=== PATIENT | male | born 1955 | race Caucasian/White ===

== ENCOUNTER → 2019-11-04 14:44 | Outpatient (BNVA) | payer MEDICARE, MEDICAID, SELFPAY | PROVIDERS: Visit Provider Nurse Practitioner Family | DX: J44.1 Chronic obstructive pulmonary disease with (acute) exacerbation (principal); F17.200 Nicotine dependence, unspecified, uncomplicated; R09.89 Other specified symptoms and signs involving the circulatory and respiratory systems | CPT/HCPCS: 71046; 87804 ==

== ENCOUNTER → 2019-12-02 13:45 | Outpatient (BNVA) | payer MEDICARE, MEDICAID, SELFPAY | PROVIDERS: Visit Provider Internal Medicine Critical Care Medicine | DX: J44.9 Chronic obstructive pulmonary disease, unspecified (principal); F17.200 Nicotine dependence, unspecified, uncomplicated | CPT/HCPCS: 80053 ==

== ENCOUNTER → 2020-08-09 11:46 | Outpatient (BNVA) | payer MEDICARE, MEDICAID, SELFPAY | PROVIDERS: Visit Provider Nurse Practitioner Family | DX: J44.1 Chronic obstructive pulmonary disease with (acute) exacerbation (principal); F17.200 Nicotine dependence, unspecified, uncomplicated; R06.02 Shortness of breath; J44.9 Chronic obstructive pulmonary disease, unspecified | CPT/HCPCS: 71046; 80053; 85025 ==

== ENCOUNTER 2020-08-30 19:27 | Emergency (ER) | payer MEDICARE, MEDICAID, SELFPAY ==
[2020-08-30] VITALS (9 sets, daily range): BP systolic 131–175; BP diastolic 72–111; PULSE 74–82; RESP 15–24; TEMP 36.6; O2SAT 93–98; BMI 24.9
--- NOTE | 2020-08-30 19:37 | XR_ITS ---
WS: [id number] XR chest 1V portable [id number] REASON FOR EXAM: sob FINDINGS: The chest is unchanged compared to 08/09/2020. Normal heart and mediastinum. No active pulmonary parenchymal or pleural disease. Bony thorax intact. XR/XR chest 1V portable [id number] IMPRESSION: No acute chest abnormality.
--- NOTE | 2020-08-30 19:49 | ED_ITS ---
HPI - COVID General: Chief Complaint: COVID symptoms Stated Complaint: SOB/FEVER Time Seen by Provider: 08/30/20 19:33 Source: patient Mode of arrival: ambulatory Limitations: no limitations Triage information: Has fever, cough or shortness of breath . No known COVID + exposure last 14 days History of Present Illness: HPI Narrative: 64-year-old male has a long history of COPD states he is having shortness of breath and cough over the last 4 to 5 days. He has had body aches as well with no fever. EMS brought him in on oxygen but has turned his oxygen off. Has been satting 94% here on room air patient states he is also had a dull ache in the center of his chest. Denies any worsening improving factors. COVID 19 common symptoms: positive non-productive cough and dyspnea; negative fever(s), chills, body aches, headache(s), throat pain, nausea, vomiting or diarrhea COVID 19 other sytmptoms: negative chest pain COVID Results: SARS-CoV-2 Antigen (Rapid) Pending 08/30/20 19:43 08/30/20 Review of Systems Const: Denies: fever(s), chills, body aches or change in appetite Eyes: Denies: blurry vision or eye discomfort ENMT: Denies: throat pain or dental pain Card: Denies: chest pain Resp: Reports: dyspnea, non-productive cough and wheezing GI: Denies: abdominal pain, nausea, vomiting or diarrhea : Denies: dysuria Musc: Denies: neck pain or back pain Skin/Breast: Denies: rash Neuro: Denies: headache(s) Psych: Denies: depression Yon/Lymph: Denies: easy bruising All/Imm: Denies: urticaria PFSH ED PFSH: Medical History Anxiety Chronic back pain greater than 3 months duration COPD (chronic obstructive pulmonary disease) Depression History of CVA (cerebrovascular accident) without residual deficits Smoker Family History Other Cancer Social History Smoking and tobacco status: current every day smoker cigarettes Packs smoked per day: 0.5 Years cigarettes smoked: 45 Second hand smoke exposure: No Smoking risk assessment/counseling performed?: Yes Alcohol intake: never Desire information about alcohol rehabilitation?: No Counseling given: No Desire information about substance/drug rehabilitation?: No Counseling given: No Adopted: No Caregiver/support person: No Lives independently: Yes Household members: none Housing: Apartment Marital status: Single Number of children: 4 service: Yes branch: [employer] Current occupational status: disabled History of recent travel: No Current gender identity: Male Physical Exam Const: COMMON NORMALS: no acute distress, patient oriented x3 and healthy appearing HENMT: COMMON NORMALS: normocephalic and atraumatic HEAD & SCALP: normocephalic and atraumatic Eye: COMMON NORMALS: Equal, round and reactive pupils present and EOMs intact bilaterally PUPIL: Yes Equal, round and reactive pupils present Neck/C-Spine: COMMON NORMALS: full ROM and supple Chest: COMMONS NORMALS: normal inspection of the chest and normal palpation of entire chest wall Resp: COMMON NORMALS: normal respiratory effort, No retractions and No use of accessory muscles AUSCULTATION: wheezes Cardio: COMMON NORMALS: regular rate, regular rhythm and No murmurs present (Cardio) RATE: regular rate RHYTHM: regular rhythm GI: COMMON NORMALS: Normal to inspection, nondistended, normoactive bowel sounds present, Soft to palpation, non-tender and no masses PALPATION: Yes Soft to palpation Extremity: COMMON NORMALS: normal to inspection and full ROM Neuro: COMMON NORMALS: patient oriented x3, moves all extremities and no focal motor deficits Psych: COMMON NORMALS: mental status grossly normal, Normal thought process present and cooperative THOUGHT PROCESS: Normal thought process present Skin: COMMON NORMALS: no rashes or lesions noted and no wounds GENERAL SKIN EXAM: no rashes or lesions noted Course Vital Signs: Vital signs: Vital Signs Temperature 97.9 F 08/30/20 19:29 Pulse Rate 78 08/30/20 19:29 Respiratory Rate 24 H 08/30/20 19:29 Blood Pressure 175/111 08/30/20 19:29 Pulse Oximetry 94 08/30/20 20:02 MDM - COVID Lab Data: Labs: Lab Results 08/30/20 08/30/20 08/30/20 Range/Units 19:43 19:43 19:43 WBC 3.9 L (4.0-10.0) 10^3/ uL RBC 5.28 (4.1-5.3) 10^6/u L Hgb 15.8 (11.7-16.6) g/dL Hct 49.5 (42.0-52.0) % MCV 93.8 (80-94) fL MCH 29.9 (28.0-34.0) pg MCHC 31.9 (30.0-36.0) g/dL RDW 13.1 (12.1-15.1) % Plt Count 155 (130-400) 10^3/c mm MPV 12.6 H (7.4-10.4) fL Neut % (Auto) 41.0 % Lymph % (Auto) 44.1 % [place] % (Auto) 13.0 % Eos % (Auto) 1.3 % Baso % (Auto) 0.3 % Neut # (Auto) 1.61 L (1.8-7.7) 10^3/u L Lymph # (Auto) 1.7 (0.8-4.8) 10^3/u L [place] # (Auto) 0.5 (0.2-0.9) 10^3/u L Eos # (Auto) 0.1 (0.0-0.8) 10^3/u L Baso # (Auto) 0.0 (0.0-0.1) 10^3/u L Nucleated RBC % (a uto) 0 % Nucleated RBCs # 0.0 /100WBC D-Dimer 0.33 (0-0.59) ug/mIFE U Specimen Type Sample Site ABG pH (7.35-7.45) ABG pCO2 (35-45) mmHg ABG pO2 (80.0-100.0) mmH g ABG HCO3 (22-26) mmol/L ABG Base Excess (-2.0-2.0) mmol/ L Marcin Test Hematocrit (42-52) % O2 Delivery Device Bulk Gas Specialist ID Sodium 138 (136-145) mmol/L Potassium 4.3 (3.5-5.1) mmol/L Chloride 103 (98-107) mmol/L Carbon Dioxide 28 (22-29) mmol/L Anion Gap 11.3 (5-19) BUN 23 (8-23) mg/dL Creatinine 0.9 (0.7-1.2) mg/dL Glucose 111 (65-115) mg/dL Calculated Osmolal ity 290 (285-295) mOsm/k g Lactic Acid (0.5-2.2) mmol/L Calcium 8.8 (8.5-10.5) mg/dL Total Bilirubin 0.2 (0.15-1.2) mg/dL AST 15 (0-40) U/L ALT 23 (0-41) U/L Alkaline Phosphata se 91 (40-130) IU/L NT-Pro-B Natriuret Pep 18 (0-125) pg/mL Total Protein 6.6 (6.6-8.7) g/dL Albumin 3.7 (3.5-5.2) g/dL Globulin 2.9 (1.3-4.6) g/dL 08/30/20 08/30/20 Range/Units 19:43 20:05 WBC (4.0-10.0) 10^3/ uL RBC (4.1-5.3) 10^6/u L Hgb (11.7-16.6) g/dL Hct (42.0-52.0) % MCV (80-94) fL MCH (28.0-34.0) pg MCHC (30.0-36.0) g/dL RDW (12.1-15.1) % Plt Count (130-400) 10^3/c mm MPV (7.4-10.4) fL Neut % (Auto) % Lymph % (Auto) % [place] % (Auto) % Eos % (Auto) % Baso % (Auto) % Neut # (Auto) (1.8-7.7) 10^3/u L Lymph # (Auto) (0.8-4.8) 10^3/u L [place] # (Auto) (0.2-0.9) 10^3/u L Eos # (Auto) (0.0-0.8) 10^3/u L Baso # (Auto) (0.0-0.1) 10^3/u L Nucleated RBC % (a uto) % Nucleated RBCs # /100WBC D-Dimer (0-0.59) ug/mIFE U Specimen Type Arterial Sample Site Radial, right ABG pH 7.39 (7.35-7.45) ABG pCO2 42.3 (35-45) mmHg ABG pO2 75.2 L (80.0-100.0) mmH g ABG HCO3 25.7 (22-26) mmol/L ABG Base Excess 0.5 (-2.0-2.0) mmol/ L Marcin Test Pos Hematocrit 51.1 (42-52) % O2 Delivery Device None Bulk Gas Specialist ID [email or web address] Sodium (136-145) mmol/L Potassium (3.5-5.1) mmol/L Chloride (98-107) mmol/L Carbon Dioxide (22-29) mmol/L Anion Gap (5-19) BUN (8-23) mg/dL Creatinine (0.7-1.2) mg/dL Glucose (65-115) mg/dL Calculated Osmolal ity (285-295) mOsm/k g Lactic Acid 0.7 (0.5-2.2) mmol/L Calcium (8.5-10.5) mg/dL Total Bilirubin (0.15-1.2) mg/dL AST (0-40) U/L ALT (0-41) U/L Alkaline Phosphata se (40-130) IU/L NT-Pro-B Natriuret Pep (0-125) pg/mL Total Protein (6.6-8.7) g/dL Albumin (3.5-5.2) g/dL Globulin (1.3-4.6) g/dL Imaging Data: CXR: Attestation: I personally reviewed and interpreted this imaging study as follows: My impression: no acute abnormality EKG Data: EKG 1: Attestation: I personally reviewed and interpreted this EKG as follows: EKG interpretation date: 08/30/20 EKG interpretation time: 19:34 Interpretation: nsr hr [address] or t wave abnormalities qrs 84 qtc 388 COVID Results: SARS-CoV-2 Antigen (Rapid) Pending 08/30/20 19:43 08/30/20 Discharge Plan Discharge Prescriptions: No Action albuterol sulfate 2.5 mg /3 mL (0.083 %) solution for nebulization 2.5 mg INHALATION Q4H PRN (Reason: shortness of breath or wheezing) 30 Days Qty: 75 RF: 5 revefenacin 175 mcg/3 mL solution for nebulization 175 mcg INHALATION DAILY 90 Days Qty: 90 RF: 3 Seroquel 100 mg tablet 100 mg PO BEDTIME@2200 RF: 0 Pulmicort 0.5 mg/2 mL suspension for nebulization 0.5 mg INHALATION BID@1000,2200 RF: 0 Coding Level of Care Code ED Stained Glass Gl[place]ier for Ralphg Fwd Exam Comprehensive
[2020-08-30 20:01] LABS: Basophils % 0.3 %; Eosinophils # 0.1 10^3/uL (0.0-0.8); Eosinophils % 1.3 %; Hematocrit 49.5 % (42.0-52.0); Hemoglobin 15.8 g/dL (11.7-16.6); Lymphocytes # 1.7 10^3/uL (0.8-4.8); Lymphocytes % 44.1 %; Mean Corpuscular HGB Conc 31.9 g/dL (30.0-36.0); Mean Corpuscular Hemoglobin 29.9 pg (28.0-34.0); Mean Corpuscular Volume 93.8 fL (80-94); Mean Platelet Volume 12.6 fL (7.4-10.4); Monocytes # 0.5 10^3/uL (0.2-0.9); Neutrophils # 1.61 10^3/uL (1.8-7.7); Nucleated Red Blood Cells % 0 %; Platelet Count 155 10^3/cmm (130-400); Red Blood Count 5.28 10^6/uL (4.1-5.3); Red Cell Distribution Width 13.1 % (12.1-15.1); White Blood Count 3.9 10^3/uL (4.0-10.0)
[2020-08-30 20:14] LABS: ABG PCO2 42.3 mmHg (35-45); ABG PH Result 7.39 (7.35-7.45); Arterial Blood Gas Hematocrit 51.1 % (42-52); Base Excess ABG 0.5 mmol/L (-2.0-2.0); Blood Gas Allen Test Pos; Blood Gas Sample Site Radial, right; Blood Gas Sample Type Arterial; HCO3 ABG 25.7 mmol/L (22-26); PO2 ABG 75.2 mmHg (80.0-100.0)
[2020-08-30 20:21] LABS: D Dimer 0.33 ug/mIFEU (0-0.59)
[2020-08-30 20:31] LABS: Lactic Sepsis W/Reflex 0.7 mmol/L (0.5-2.2)
[2020-08-30 20:37] LABS: Alanine Aminotransferase 23 U/L (0-41); Albumin Level 3.7 g/dL (3.5-5.2); Alkaline Phosphatase 91 IU/L (40-130); Anion Gap 11.3 (5-19); Aspartate Amino Transferase 15 U/L (0-40); Blood Urea Nitrogen 23 mg/dL (8-23); C Reactive Protein 7.6 mg/L (0.0-4.9); Calcium 8.8 mg/dL (8.5-10.5); Carbon Dioxide 28 mmol/L (22-29); Chloride 103 mmol/L (98-107); Globulin 2.9 g/dL (1.3-4.6); Glucose 111 mg/dL (65-115); NT Pro B Type Natriuretic Pept 18 pg/mL (0-125); Osmolality Calculated 290 mOsm/kg (285-295); Potassium 4.3 mmol/L (3.5-5.1); Sodium 138 mmol/L (136-145); Total Bilirubin 0.2 mg/dL (0.15-1.2); Total Protein 6.6 g/dL (6.6-8.7)
[2020-08-30 20:49] LABS: SARS Covid-2 Antigen Positive (Negative)
[2020-08-30 21:01] LABS: Troponin(5th) Baseline 8 ng/L (0-15)
--- NOTE | 2020-08-30 21:11 | ED_ITS ---
HPI - COVID General: Chief Complaint: COVID symptoms Stated Complaint: SOB/FEVER Time Seen by Provider: 08/30/20 19:33 Source: patient Mode of arrival: ambulatory Limitations: no limitations Triage information: Has fever, cough or shortness of breath . No known COVID + exposure last 14 days COVID Results: SARS-CoV-2 Antigen (Rapid) Positive (Negative) H 08/30/20 19:43 08/30/20 [facility] ED PFSH: Medical History Anxiety Chronic back pain greater than 3 months duration COPD (chronic obstructive pulmonary disease) Depression History of CVA (cerebrovascular accident) without residual deficits Smoker Family History Other Cancer Social History Smoking and tobacco status: current every day smoker cigarettes Packs smoked per day: 0.5 Years cigarettes smoked: 45 Second hand smoke exposure: No Smoking risk assessment/counseling performed?: Yes Alcohol intake: never Desire information about alcohol rehabilitation?: No Counseling given: No Desire information about substance/drug rehabilitation?: No Counseling given: No Adopted: No Caregiver/support person: No Lives independently: Yes Household members: none Housing: Apartment Marital status: Single Number of children: 4 service: Yes branch: [employer] Current occupational status: disabled History of recent travel: No Current gender identity: Male Course Vital Signs: Vital signs: Vital Signs Temperature 97.9 F 08/30/20 19:29 Pulse Rate 78 08/30/20 19:29 Respiratory Rate 24 H 08/30/20 19:29 Blood Pressure 175/111 08/30/20 19:29 Pulse Oximetry 94 08/30/20 20:02 MDM - COVID MDM Narrative: Medical decision making narrative: Alfredo presents here with Covid 19. He does have a long history of COPD and meets criteria for bam infusion. He is well-appearing here in no distress and pulse ox is currently 95% on room air. X-ray shows no pneumonia and his blood work is normal including a negative D-dimer. Patient is stable for discharge. He came in on 2 L by EMS but he was not requiring that and has not required oxygen at all while in the ER. I did give him strict return instructions including a hypoxia. Patient stable for discharge and is to return if worsening. He understands and agrees the plan. Lab Data: Labs: Lab Results 08/30/20 08/30/20 08/30/20 Range/Units 19:43 19:43 19:43 WBC 3.9 L (4.0-10.0) 10^3/ uL RBC 5.28 (4.1-5.3) 10^6/u L Hgb 15.8 (11.7-16.6) g/dL Hct 49.5 (42.0-52.0) % MCV 93.8 (80-94) fL MCH 29.9 (28.0-34.0) pg MCHC 31.9 (30.0-36.0) g/dL RDW 13.1 (12.1-15.1) % Plt Count 155 (130-400) 10^3/c mm MPV 12.6 H (7.4-10.4) fL Neut % (Auto) 41.0 % Lymph % (Auto) 44.1 % [place] % (Auto) 13.0 % Eos % (Auto) 1.3 % Baso % (Auto) 0.3 % Neut # (Auto) 1.61 L (1.8-7.7) 10^3/u L Lymph # (Auto) 1.7 (0.8-4.8) 10^3/u L [place] # (Auto) 0.5 (0.2-0.9) 10^3/u L Eos # (Auto) 0.1 (0.0-0.8) 10^3/u L Baso # (Auto) 0.0 (0.0-0.1) 10^3/u L Nucleated RBC % (a uto) 0 % Nucleated RBCs # 0.0 /100WBC D-Dimer 0.33 (0-0.59) ug/mIFE U Specimen Type Sample Site ABG pH (7.35-7.45) ABG pCO2 (35-45) mmHg ABG pO2 (80.0-100.0) mmH g ABG HCO3 (22-26) mmol/L ABG Base Excess (-2.0-2.0) mmol/ L Marcin Test Hematocrit (42-52) % O2 Delivery Device Machine Setter Supervisor ID Sodium 138 (136-145) mmol/L Potassium 4.3 (3.5-5.1) mmol/L Chloride 103 (98-107) mmol/L Carbon Dioxide 28 (22-29) mmol/L Anion Gap 11.3 (5-19) BUN 23 (8-23) mg/dL Creatinine 0.9 (0.7-1.2) mg/dL GFR Calculation 85.0 L (90-130) mL/min Glucose 111 (65-115) mg/dL Calculated Osmolal ity 290 (285-295) mOsm/k g Lactic Acid (0.5-2.2) mmol/L Calcium 8.8 (8.5-10.5) mg/dL Total Bilirubin 0.2 (0.15-1.2) mg/dL AST 15 (0-40) U/L ALT 23 (0-41) U/L Alkaline Phosphata se 91 (40-130) IU/L Troponin T Baselin e (0-15) ng/L C-Reactive Protein 7.6 H (0.0-4.9) mg/L NT-Pro-B Natriuret Pep 18 (0-125) pg/mL Total Protein 6.6 (6.6-8.7) g/dL Albumin 3.7 (3.5-5.2) g/dL Globulin 2.9 (1.3-4.6) g/dL SARS-CoV-2 Ag (Rap id) (Negative) 08/30/20 08/30/20 08/30/20 Range/Units 19:43 19:43 19:43 WBC (4.0-10.0) 10^3/ uL RBC (4.1-5.3) 10^6/u L Hgb (11.7-16.6) g/dL Hct (42.0-52.0) % MCV (80-94) fL MCH (28.0-34.0) pg MCHC (30.0-36.0) g/dL RDW (12.1-15.1) % Plt Count (130-400) 10^3/c mm MPV (7.4-10.4) fL Neut % (Auto) % Lymph % (Auto) % [place] % (Auto) % Eos % (Auto) % Baso % (Auto) % Neut # (Auto) (1.8-7.7) 10^3/u L Lymph # (Auto) (0.8-4.8) 10^3/u L [place] # (Auto) (0.2-0.9) 10^3/u L Eos # (Auto) (0.0-0.8) 10^3/u L Baso # (Auto) (0.0-0.1) 10^3/u L Nucleated RBC % (a uto) % Nucleated RBCs # /100WBC D-Dimer (0-0.59) ug/mIFE U Specimen Type Sample Site ABG pH (7.35-7.45) ABG pCO2 (35-45) mmHg ABG pO2 (80.0-100.0) mmH g ABG HCO3 (22-26) mmol/L ABG Base Excess (-2.0-2.0) mmol/ L Marcin Test Hematocrit (42-52) % O2 Delivery Device Machine Setter Supervisor ID Sodium (136-145) mmol/L Potassium (3.5-5.1) mmol/L Chloride (98-107) mmol/L Carbon Dioxide (22-29) mmol/L Anion Gap (5-19) BUN (8-23) mg/dL Creatinine (0.7-1.2) mg/dL GFR Calculation (90-130) mL/min Glucose (65-115) mg/dL Calculated Osmolal ity (285-295) mOsm/k g Lactic Acid 0.7 (0.5-2.2) mmol/L Calcium (8.5-10.5) mg/dL Total Bilirubin (0.15-1.2) mg/dL AST (0-40) U/L ALT (0-41) U/L Alkaline Phosphata se (40-130) IU/L Troponin T Baselin e 8 (0-15) ng/L C-Reactive Protein (0.0-4.9) mg/L NT-Pro-B Natriuret Pep (0-125) pg/mL Total Protein (6.6-8.7) g/dL Albumin (3.5-5.2) g/dL Globulin (1.3-4.6) g/dL SARS-CoV-2 Ag (Rap id) Positive H (Negative) 08/30/20 Range/Units 20:05 WBC (4.0-10.0) 10^3/ uL RBC (4.1-5.3) 10^6/u L Hgb (11.7-16.6) g/dL Hct (42.0-52.0) % MCV (80-94) fL MCH (28.0-34.0) pg MCHC (30.0-36.0) g/dL RDW (12.1-15.1) % Plt Count (130-400) 10^3/c mm MPV (7.4-10.4) fL Neut % (Auto) % Lymph % (Auto) % [place] % (Auto) % Eos % (Auto) % Baso % (Auto) % Neut # (Auto) (1.8-7.7) 10^3/u L Lymph # (Auto) (0.8-4.8) 10^3/u L [place] # (Auto) (0.2-0.9) 10^3/u L Eos # (Auto) (0.0-0.8) 10^3/u L Baso # (Auto) (0.0-0.1) 10^3/u L Nucleated RBC % (a uto) % Nucleated RBCs # /100WBC D-Dimer (0-0.59) ug/mIFE U Specimen Type Arterial Sample Site Radial, right ABG pH 7.39 (7.35-7.45) ABG pCO2 42.3 (35-45) mmHg ABG pO2 75.2 L (80.0-100.0) mmH g ABG HCO3 25.7 (22-26) mmol/L ABG Base Excess 0.5 (-2.0-2.0) mmol/ L Marcin Test Pos Hematocrit 51.1 (42-52) % O2 Delivery Device None Machine Setter Supervisor ID [email or web address] Sodium (136-145) mmol/L Potassium (3.5-5.1) mmol/L Chloride (98-107) mmol/L Carbon Dioxide (22-29) mmol/L Anion Gap (5-19) BUN (8-23) mg/dL Creatinine (0.7-1.2) mg/dL GFR Calculation (90-130) mL/min Glucose (65-115) mg/dL Calculated Osmolal ity (285-295) mOsm/k g Lactic Acid (0.5-2.2) mmol/L Calcium (8.5-10.5) mg/dL Total Bilirubin (0.15-1.2) mg/dL AST (0-40) U/L ALT (0-41) U/L Alkaline Phosphata se (40-130) IU/L Troponin T Baselin e (0-15) ng/L C-Reactive Protein (0.0-4.9) mg/L NT-Pro-B Natriuret Pep (0-125) pg/mL Total Protein (6.6-8.7) g/dL Albumin (3.5-5.2) g/dL Globulin (1.3-4.6) g/dL SARS-CoV-2 Ag (Rap id) (Negative) Imaging Data: CXR: My impression: no acute abnormalities COVID Results: SARS-CoV-2 Antigen (Rapid) Positive (Negative) H 08/30/20 19:43 08/30/20 Monoclonal Antibody Treatments Inclusion/Exclusion Criteria + direct Sars-Cov-2 test less than 7-10 days ago age >/= 55 and has COPD/lung diease not requiring hospitalization, not requiring oxygen (if not chronically on oxygen) and no increase oxygen requirement (if chronically on oxygen) Patient education patient/family/caregiver received/reviewed fact sheet, Emergency Use Authorization/unapproved drug status discussed with patient/family/caregiver, alternatives to this treatment discussed with patient/family/caregiver, risks and benefits of medication reviewed with patient/family/caregiver, patient/family/caregiver given opportunity for questions, which were answered and patient consents to receiving Monoclonal Antibody Treatment Plan for treatment Meets criteria for Monoclonal Antibody infusion Ordering Monoclonal Antibody infusion for today Discharge Plan Discharge Patient Disposition: Home Clinical Impression: COVID-19 Condition: Stable Prescriptions: No Action albuterol sulfate 2.5 mg /3 mL (0.083 %) solution for nebulization 2.5 mg INHALATION Q4H PRN (Reason: shortness of breath or wheezing) 30 Days Qty: 75 RF: 5 revefenacin 175 mcg/3 mL solution for nebulization 175 mcg INHALATION DAILY 90 Days Qty: 90 RF: 3 Seroquel 100 mg tablet 100 mg PO BEDTIME@2200 RF: 0 Pulmicort 0.5 mg/2 mL suspension for nebulization 0.5 mg INHALATION BID@1000,2200 RF: 0 Discharge Orders: Discharge ED (Routine); Ordered 08/30/20 Ordered By: Danita De Oliveira Discharge Diet: Advance as tolerated Discharge Activity: Resume usual activity Patient Instructions: Upper Respiratory Infection (ED) Coding Level of Care Code ED Mandolin Repairer for Belinda Scott
[2020-08-30] MEDS: albuterol 8 gm MDI 2 PUFF INHALATION (21:58)
--- NOTE | 2020-08-30 22:25 | PC.NURSE ---
This RN discussed risks and benefits of the BAM infusion, patient understands, patient signed consent infusion started
[2020-08-31 00:08] VITALS: BP 143/84; PULSE 87; RESP 16; O2SAT 96
[2020-08-31 00:10] VITALS: BP 138/82; PULSE 85; RESP 16; O2SAT 96
--- NOTE | 2020-08-31 14:26 | DCPLANNER ---
Addendum entered by Griselda Mccall 09/13/20 14:38: geriatric care manager called patient after day 10 of receiving the BAM infusion. Patient stated that he is feeling great, not been admitted anywhere. Patient stated that he is feeling really good. Addendum entered by Griselda Mccall 09/05/20 14:02: geriatric care manager is unable to speak with patient or leave a voicemail for patient at this time. geriatric care manager spoke with patients daughter who stated that when she spoke with patient on 09.04.20, that patient was feeling fine. Original Note: geriatric care manager had message that patient received the BAM infusion. geriatric care manager called to check on patient after receiving the infusion. Patient stated that he tolerated the infusion well. Patient stated that before the infusion that his body felt weak, his throat was sore, no fever, had a heaviness in his chest, eyes were burning. Patient stated that he felt like he had a cold, he had a headache. After the infusion patient stated that he is feeling good, is oxygen is running 96-97, his breathing is good, he is doing what he does everyday. He is not running a fever. Patient did say that he can tell a difference, does not feel as weak, his chest is not as heavy, he does still have a slight headache. geriatric care manager called the [facility], a follow up appointment is scheduled for Saturday, September 12, 2020 at 2:00 with Jaylin Benjamin. geriatric care manager called patient with appointment information.
== END 2020-08-31 00:45 | disposition home or self-care (01) ==
PROVIDERS: Emergency Provider Emergency Medicine
DX: U07.1 COVID-19 (principal); J44.9 Chronic obstructive pulmonary disease, unspecified; Z86.73 Personal history of transient ischemic attack (TIA), and cerebral infarction without residual deficits; F17.210 Nicotine dependence, cigarettes, uncomplicated
CPT/HCPCS: 12345; 36600; 71045; 80053; 82803; 83605; 83880; 84484; 85025; 85378; 86140; 87426; 94640; 99283; 99284; J2930; J3535; J7050

== ENCOUNTER → 2020-12-30 10:40 | Outpatient (BNVA) | payer MEDICARE, MEDICAID, SELFPAY | PROVIDERS: PCP Nurse Practitioner Family; Visit Provider Nurse Practitioner Family | DX: M54.9 Dorsalgia, unspecified (principal); R30.0 Dysuria; G47.00 Insomnia, unspecified | CPT/HCPCS: 80053; 81000; 85025; 87086; 87491; 87591 ==

== ENCOUNTER → 2021-01-10 10:57 | Outpatient (BNVA) | payer MEDICARE, MEDICAID, SELFPAY | PROVIDERS: PCP Nurse Practitioner Family; Visit Provider Nurse Practitioner Family | DX: R39.9 Unspecified symptoms and signs involving the genitourinary system (principal); R30.0 Dysuria; R35.1 Nocturia | CPT/HCPCS: 81000; 84153 ==

== ENCOUNTER → 2022-01-15 09:14 | Outpatient (BNVA) | payer MEDICARE, MEDICAID, SELFPAY | PROVIDERS: PCP Nurse Practitioner Family; Visit Provider Nurse Practitioner Family | DX: Z13.6 Encounter for screening for cardiovascular disorders (principal); J44.9 Chronic obstructive pulmonary disease, unspecified; J44.1 Chronic obstructive pulmonary disease with (acute) exacerbation; Z12.2 Encounter for screening for malignant neoplasm of respiratory organs; Z12.5 Encounter for screening for malignant neoplasm of prostate | CPT/HCPCS: 80053; 80061; 85025; G0103 ==

== ENCOUNTER → 2022-01-17 09:04 | Outpatient (BNVA) | payer MEDICARE, MEDICAID, SELFPAY | PROVIDERS: PCP Nurse Practitioner Family; Visit Provider Nurse Practitioner Family | DX: J44.9 Chronic obstructive pulmonary disease, unspecified (principal) | CPT/HCPCS: 71046 ==

== ENCOUNTER → 2022-02-15 13:03 | Outpatient (BNVA) | payer MEDICARE, MEDICAID, SELFPAY | PROVIDERS: PCP Nurse Practitioner Family; Visit Provider Internal Medicine Critical Care Medicine | DX: J44.1 Chronic obstructive pulmonary disease with (acute) exacerbation (principal); J44.9 Chronic obstructive pulmonary disease, unspecified; F17.210 Nicotine dependence, cigarettes, uncomplicated | CPT/HCPCS: 99214 ==

== ENCOUNTER 2022-03-27 10:18 | Outpatient (CLI) | payer MEDICARE, MEDICAID, SELFPAY ==
--- NOTE | 2022-03-27 10:25 | CT_ITS ---
WS: [id number] LDCT LUNG CANCER SCREENING HISTORY: Current smoker TECHNIQUE: Axial imaging performed from the apices to 1 cm below the costophrenic angles. Coronal and sagittal reformats are submitted with axial MIP series. All CT scans at [facility] use at least one of these dose optimization techniques: automated exposure control; mA and/or kV adjustment per patient size (includes targeted exams where dose is matched to clinical indication); or iterativ e reconstruction. DLP: 69.02 mGy.cm DIvol: Mean CTDIvol: 1.60 (mGy) COMPARISON: None available. Diagnostic quality: Satisfactory Lung Nodules: No pulmonary nodule or mass. Small amount of mucus in the trachea. Heart: Normal size heart. Other findings: Substernal thyroid. CT/CT lung screening [id number] IMPRESSION: LUNG-RADS: 1-Negative FOLLOW UP: 12 Month: Continue annual screening with LDCT OTHER FINDINGS (S MODIFIER): None.
== END 2022-03-27 10:19 | disposition home or self-care (01) ==
PROVIDERS: PCP Nurse Practitioner Family; Visit Provider Internal Medicine Critical Care Medicine
DX: F17.200 Nicotine dependence, unspecified, uncomplicated (principal)
CPT/HCPCS: 71271

== ENCOUNTER → 2022-04-30 14:03 | Outpatient (BNVA) | payer MEDICARE, MEDICAID, SELFPAY | PROVIDERS: PCP Nurse Practitioner Family; Visit Provider Internal Medicine Critical Care Medicine | DX: J44.9 Chronic obstructive pulmonary disease, unspecified (principal); F17.210 Nicotine dependence, cigarettes, uncomplicated | CPT/HCPCS: 99214 ==

== ENCOUNTER 2022-05-08 06:40 | Outpatient (CLI) | payer MEDICARE, MEDICAID, SELFPAY ==
--- NOTE | 2022-05-08 13:38 | PFTS_ITS ---
Date of Study:05/08/22 Date of Dictation: MECHANICS: Forced vital capacity (FVC) is . Forced expiratory volume in one second (FEV1) is . FEV1/FVC is . FLOW VOLUME LOOP: . LUNG VOLUMES: Total lung capacity (TLC) is . Residual volume (RV) is . DIFFUSING CAPACITY FOR CARBON MONOXIDE: . INTERPRETATION: The pulmonary function tests are . mechanics and lung volumes. Gas exchange (DLCO) is . MTDD
== END 2022-05-08 06:41 | disposition home or self-care (01) ==
LOC: RT 06:40
PROVIDERS: PCP Nurse Practitioner Family; Visit Provider Internal Medicine Critical Care Medicine
DX: J44.9 Chronic obstructive pulmonary disease, unspecified (principal)
CPT/HCPCS: 94060; 94726; 94729; J7611

== ENCOUNTER → 2022-09-21 08:43 | Outpatient (BNVA) | payer MEDICARE, MEDICAID, SELFPAY | PROVIDERS: PCP Nurse Practitioner Family; Visit Provider Internal Medicine Pulmonary Disease | DX: J44.9 Chronic obstructive pulmonary disease, unspecified (principal); F17.210 Nicotine dependence, cigarettes, uncomplicated; R05.3 Chronic cough; R09.3 Abnormal sputum; R06.2 Wheezing; R06.02 Shortness of breath | CPT/HCPCS: 99214 ==

== ENCOUNTER 2023-03-18 09:43 | Outpatient (CLI) | payer MEDICARE, MEDICAID, SELFPAY ==
--- NOTE | 2023-03-18 11:15 | CT_ITS ---
WS: [id number] LDCT LUNG CANCER SCREENING TECHNIQUE: Noncontrast CT of the chest with coronal and sagittal reformatted images. CLINICAL INFORMATION: lung screening COMPARISON: March 27, 2022 DLP: 44.10 mGy.cm DIvol: Mean CTDIvol: 0.70 (mGy) All CT scans at [facility] use at least one of these dose optimization techniques: automat ed exposure control; mA and/or kV adjustment per patient size (includes targeted exams where dose is matched to clinical indication); or iterative reconstruction. FINDINGS: Lungs are well aerated. No acute pulmonary infiltrates. No suspicious pulmonary parenchymal normalities. Normal caliber thoracic aorta. Aortic Calcification. No mediastinal or hilar lymphadenopathy. No axil gopi lymphadenopathy. Adrenal glands are normal. Normal GE junction. Mild fatty atrophy of the pancreas. CT/CT lung screening [id number] IMPRESSION: LUNG-RADS: 1-Negative FOLLOW UP: 12 Month: Continue annual screening with LDCT
== END 2023-03-18 09:44 | disposition home or self-care (01) ==
LOC: RAD 09:47
PROVIDERS: PCP Nurse Practitioner Family; Visit Provider Internal Medicine Pulmonary Disease
DX: Z12.2 Encounter for screening for malignant neoplasm of respiratory organs (principal); F17.210 Nicotine dependence, cigarettes, uncomplicated; J44.1 Chronic obstructive pulmonary disease with (acute) exacerbation
CPT/HCPCS: 71271

== ENCOUNTER → 2023-03-25 13:51 | Outpatient (BNVA) | payer MEDICARE, MEDICAID, SELFPAY | PROVIDERS: PCP Nurse Practitioner Family; Visit Provider Internal Medicine Pulmonary Disease | DX: J44.9 Chronic obstructive pulmonary disease, unspecified (principal); F17.210 Nicotine dependence, cigarettes, uncomplicated | CPT/HCPCS: 99214 ==

== ENCOUNTER → 2023-11-11 11:27 | Outpatient (BNVA) | payer MEDICARE, MEDICAID, SELFPAY | PROVIDERS: PCP Nurse Practitioner Family; Visit Provider Nurse Practitioner Family | DX: U07.1 COVID-19 (principal); J44.9 Chronic obstructive pulmonary disease, unspecified; Z13.6 Encounter for screening for cardiovascular disorders | CPT/HCPCS: 80053; 80061; 84443; 85025 ==

== ENCOUNTER 2023-11-16 16:55 | Emergency (ER) | payer MEDICARE, MEDICAID, SELFPAY ==
[2023-11-16 17:05] VITALS: BP 155/65; PULSE 87; RESP 24; TEMP 37.1; O2SAT 94; BMI 24.3
[2023-11-16 17:46] LABS: Basophils % 0.3 %; Eosinophils % 0.3 %; Lymphocytes # 1.1 10^3/uL (0.8-4.8); Lymphocytes % 29.6 %; Mean Corpuscular Hemoglobin 30.7 pg (27-33); Mean Platelet Volume 11.6 fL (7.4-10.4); Monocytes # 0.6 10^3/uL (0.2-0.9); Monocytes % 16.1 %; Neutrophils # 2.06 10^3/uL (1.8-7.7); Neutrophils % 53.4 %; Nucleated Red Blood Cells % 0 %; Platelet Count 172 10^3/cmm (157-399); Red Cell Distribution Width 13.2 % (12.1-15.1); White Blood Count 3.85 10^3/uL (3.29-11.43)
[2023-11-16 18:13] LABS: Alanine Aminotransferase 23 U/L (0-41); Alkaline Phosphatase 90 U/L (40-130); Anion Gap 13.7 (5-19); Aspartate Amino Transferase 21 U/L (0-40); Blood Urea Nitrogen 16 mg/dL (8-23); Calcium 8.8 mg/dL (8.5-10.5); Carbon Dioxide 27 mmol/L (22-29); Chloride 98 mmol/L (98-107); Globulin 3.3 g/dL (1.3-4.6); Glomerular Filtration Rate 60.2 mL/min (90-130); Glucose 99 mg/dL (65-115); Osmolality Calculated 279 mOsm/kg (285-295); Potassium 4.7 mmol/L (3.5-5.1); Sodium 134 mmol/L (136-145); Total Bilirubin 0.3 mg/dL (0.15-1.2); Total Protein 7.3 g/dL (6.6-8.7)
--- NOTE | 2023-11-16 19:06 | CTR_ITS ---
PROCEDURE INFORMATION: Exam: CT Abdomen And Pelvis With Contrast Exam date and time: 11/16/2023 7:37 PM Age: 68 years old Clinical indication: Abdominal pain; Localized; Lower; Additional info: Lower abd pain TECHNIQUE: Imaging protocol: Computed tomography of the abdomen and pelvis with contrast. Radiation optimization: All CT scans at this facility use at least one of these dose optimization techniques: automated exposure control; mA and/or kV adjustment per patient size (includes targeted exams where dose is matched to clinical indication); or iterative reconstruction. Contrast material: OMNI 350; Contrast volume: 100 ml; Contrast route: INTRAVENOUS (IV); COMPARISON: CT lung screening [id number] 03/18/2023 10:13 AM RADIATION DOSE METRICS: Total DLP (mGy-cm): 355.43 FINDINGS: Liver: Normal. No mass. Gallbladder and bile ducts: Normal. No calcified stones. No ductal dilation. Pancreas: Normal. No ductal dilation. Spleen: Normal. No splenomegaly. Adrenal glands: Normal. No mass. Kidneys and ureters: No suspicious renal mass. No hydronephrosis or nephrolithiasis. Ureters are normal. Bilateral cortical subcentimeter renal cyst. Stomach and bowel: Unremarkable. No obstruction. No mucosal thickening. Appendix: No evidence of appendicitis. Intraperitoneal space: Unremarkable. No free air. No significant fluid collection. Vasculature: Unremarkable. No abdominal aortic aneurysm. Lymph nodes: Unremarkable. No enlarged lymph nodes. Urinary bladder: Unremarkable as visualized. Reproductive: Unremarkable as visualized. Bones/joints: Unremarkable. No acute fracture. Soft tissues: Unremarkable. CT/CT abdomen pelvis w con* [id number] IMPRESSION: No acute intra-abdominal findings. COMMENTS: Consistent with the [place] [employer]'s Incidental Findings Committee white paper (J Am Rufino Radiol 2018): Any incidental renal lesion less than 1 cm or classified as too small to characterize, or any incidental cystic renal lesion characterized as simple-appearing, is likely benign. No follow-up imaging is recommended for these lesions per consensus recommendations based on imaging criteria.
[2023-11-16 19:15] VITALS: PULSE 81; RESP 18; O2SAT 97
[2023-11-16] MEDS: ipratropium-albuterol 3 mL Neb INHALATION (19:16)
[2023-11-16 19:18] LABS: Bilirubin Urine 1+ (Negative); Blood Urine 3+ (Negative); Glucose Urine UA Norm (Normal); Ketones Urine 1+ (Negative); Leukocyte Esterase Urine Negative (Negative); Nitrate Urine Negative (Negative); Protein Urine 1+ (Negative); Urine Appearance Hazy (CLEAR); Urine Color Amber (Yellow); Urobilinogen Urine 1 mg/dL (Negative); pH Urine 5 (5-7)
[2023-11-16 19:19] LABS: Amorphous Sediment Urine 1+ /hpf; Bacteria Urine 2+ /hpf; Mucus Urine 2+ /hpf; Squamous Epithelial Cell Urine 0-4 /hpf (0-5); WBC Urine 0-4 /hpf (0-5)
[2023-11-16 19:20] LABS: Add Urine Culture? Yes
[2023-11-16 19:22] VITALS: PULSE 88
[2023-11-16] MEDS: iohexol 350 mg/mL 500 mL Btl (per mL) IV (19:38)
[2023-11-16 19:49] VITALS: BP 143/92; PULSE 90; O2SAT 93
--- NOTE | 2023-11-17 05:57 | ED_ITS ---
HPI - Abdominal Pain 2 General: Chief Complaint: Abdominal Pain Stated Complaint: abd pain, burning eyes Time Seen by Provider: 11/16/23 18:51 History of Present Illness: 68 year old male with mainly midline low er abdominal pain. He notes it's been there for three days. He has had ringing in his ears, and burning eyes as well. He does not know if he's had a fever. He states that he has vomited because of the pain. No diarrhea. No burning with urination. No blood in his urine. His breathing is labored, but he says he has COPD and his breathing is always this way. Associated Symptoms: Reports fever(s) (unknown), nausea and vomiting; Denies chills, diarrhea, dysuria, hematochezia and hematuria Review of Systems 2 Const: Reports: fever(s) (unknown); Denies: chills or body aches Eyes: Denies: change in vision ENMT: Denies: throat pain Card: Denies: chest pain or palpitations Resp: Reports: dyspnea (chronic); Denies: productive cough, non-productive cough or wheezing GI: Reports: abdominal pain, nausea and vomiting; Denies: diarrhea or hematochezia : Reports: urinary frequency; Denies: flank pain, difficulty urinating, dysuria or hematuria Skin/Breast: Denies: rash Neuro: Denies: headache(s), weakness in extremities, dizziness or confusion PFSH ED 2 PFSH: Medical History History of CVA (cerebrovascular accident) without residual deficits Anxiety Depression Chronic back pain greater than 3 months duration Smoker COPD (chronic obstructive pulmonary disease) Family History Other Cancer Social History Smoking and tobacco/nicotine status: current every day tobacco/nicotine user cigarettes Packs smoked per day: 0.5 Years cigarettes smoked: 51 [ Other cigarette details: Started at age 15] Second hand smoke exposure: No Alcohol intake: never Substance/Drug Use: unknown Adopted: No Caregiver/support person: No Lives independently: Yes Household members: none Housing: Apartment Marital status: Single Number of children: 4 service: Yes branch: [employer] Current occupational status: disabled Do you think of yourself as: Straight/Heterosexual Current gender identity: Male Physical Exam 2 Const: GENERAL APPEARANCE: cooperative; not ill appearing and not frail appearing HENMT: COMMON NORMALS: normocephalic, atraumatic and Normal external nose present HEAD & SCALP: normocephalic and atraumatic FACE & SINUS: normal facial exam and face symmetric NOSE: Normal external nose present Eye: COMMON NORMALS: Equal, round and reactive pupils present and EOMs intact bilaterally PUPIL: Yes Equal, round and reactive pupils present Neck/C-Spine: GENERAL: Yes trachea midline Chest: CHEST: Yes Symmetrical chest wall rise Resp: EFFORT & INSPECTION: Yes tachypneic and No respiratory distress A USCULTATION: wheezes and diminished lung sounds Cardio: COMMON NORMALS: regular rate and regular rhythm RATE: regular rate RHYTHM: regular rhythm GI: COMMON NORMALS: Normal to inspection, nondistended, normoactive bowel sounds present PALPATION: Yes Tenderness to palpation present (GI) (suprapubic) Extremity: COMMON NORMALS: no pedal edema Neuro: RAJ COMA SCALE: document GCS findings Raj coma scale eye opening: Spontaneous Raj coma scale verbal response: Orientated [place] coma scale motor response: Obey commands Raj coma scale total score: 15 S ENSORY EXAM: Yes extremities (intact) Psych: COMMON NORMALS: speech normal SPEECH: Yes normal speech Skin: COMMON NORMALS: no rashes or lesions noted GENERAL SKIN EXAM: no rashes or lesions noted Course 2 Vital Signs: Vital signs: Vital Signs Temperature 98.7 F 11/16/23 17:05 Pulse Rate 90 11/16/23 19:49 Respiratory Rate 18 11/16/23 19:15 Blood Pressure 143/92 11/16/23 19:49 Pulse Oximetry 93 11/16/23 19:49 Oxygen Delivery Me thod Room Air 11/16/23 19:49 MDM - Abdominal Pain Medical Decision Making Laboratory is not remarkable. CT shows no acute findings. The patient is tender over the supra pubic area. UA does not show evidence of urinary tract infection. He does report urinary frequency. this may be prostatitis. He will be placed on antibiotics for coverage. to return for any worsening symptoms. close outpatient follow up. Lab Data 11/16/23 17:39 11/16/23 17:39 Labs/Radiology: Radiology Impressions Abdomen/Pelvis CT 11/16/23 19:06 IMPRESSION: No acute intra-abdominal findings. COMMENTS: Consistent with the [employer]'s Incidental Findings Committee white paper (J Am Rufino Radiol 2018): Any incidental renal lesion less than 1 cm or classified as too small to characterize, or any incidental cystic renal lesion characterized as simple-appearing, is likely benign. No follow-up imaging is recommended for these lesions per consensus recommendations based on imaging criteria. Laboratory Results WBC 3.85 10^3/uL (3.29-11.43) 11/16/23 17:39 RBC 5.70 10^6/uL (3.85-5.65) H 11/16/23 17:39 Hgb 17.50 g/dL (11.27-16.99) H 11/16/23 17:39 Hct 53.0 % (37-53) 11/16/23 17:39 MCV 93.0 fl (82-101) 11/16/23 17:39 MCH 30.7 pg (27-33) 11/16/23 17:39 MCHC 33.0 g/dL (30-55) 11/16/23 17:39 RDW 13.2 % (12.1-15.1) 11/16/23 17:39 Plt Count 172 10^3/cmm (157-399) 11/16/23 17:39 MPV 11.6 fL (7.4-10.4) H 11/16/23 17:39 Neut % (Auto) 53.4 % 11/16/23 17:39 Lymph % (Auto) 29.6 % 11/16/23 17:39 Moffat % (Auto) 16.1 % 11/16/23 17:39 Eos % (Auto) 0.3 % 11/16/23 17:39 Baso % (Auto) 0.3 % 11/16/23 17:39 Neut # (Auto) 2.06 10^3/uL (1.8-7.7) 11/16/23 17:39 Lymph # (Auto) 1.1 10^3/uL (0.8-4.8) 11/16/23 17:39 Moffat # (Auto) 0.6 10^3/uL (0.2-0.9) 11/16/23 17:39 Eos # (Auto) 0.0 10^3/uL (0.0-0.8) 11/16/23 17:39 Baso # (Auto) 0.0 10^3/uL (0.0-0.1) 11/16/23 17:39 Nucleated RBC % (auto) 0 % 11/16/23 17:39 Nucleated RBCs # 0.0 /100WBC 11/16/23 17:39 Sodium 134 mmol/L (136-145) L 11/16/23 17:39 Potassium 4.7 mmol/L (3.5-5.1) 11/16/23 17:39 Chloride 98 mmol/L (98-107) 11/16/23 17:39 Carbon Dioxide 27 mmol/L (22-29) 11/16/23 17:39 Anion Gap 13.7 (5-19) 11/16/23 17:39 BUN 16 mg/dL (8-23) 11/16/23 17:39 Creatinine 1.2 mg/dL (0.7-1.2) 11/16/23 17:39 GFR Calculation 60.2 mL/min (90-130) L 11/16/23 17:39 Glucose 99 mg/dL (65-115) 11/16/23 17:39 Calculated Osmolality 279 mOsm/kg (285-295) L 11/16/23 17:39 Calcium 8.8 mg/dL (8.5-10.5) 11/16/23 17:39 Total Bilirubin 0.3 mg/dL (0.15-1.2) 11/16/23 17:39 AST 21 U/L (0-40) 11/16/23 17:39 ALT 23 U/L (0-41) 11/16/23 17:39 Alkaline Phosphatase 90 U/L (40-130) 11/16/23 17:39 Total Protein 7.3 g/dL (6.6-8.7) 11/16/23 17:39 Albumin 4.0 g/dL (3.5-5.2) 11/16/23 17:39 Globulin 3.3 g/dL (1.3-4.6) 11/16/23 17:39 Urine Color Mary Lou (Yellow) 11/16/23 19:05 Urine Appearance Hazy (CLEAR) A 11/16/23 19:05 Urine pH 5 (5-7) 11/16/23 19:05 Ur Specific [place] 1.030 (1.005-1.030) 11/16/23 19:05 Urine Protein 1+ (Negative) H 11/16/23 19:05 Urine Glucose (UA) Norm (Normal) 11/16/23 19:05 Urine Ketones 1+ (Negative) H 11/16/23 19:05 Urine Blood 3+ (Negative) H 11/16/23 19:05 Urine Nitrate Negative (Negative) 11/16/23 19:05 Urine Bilirubin 1+ (Negative) H 11/16/23 19:05 Urine Urobilinogen 1 mg/dL (Negative) H 11/16/23 19:05 Ur Leukocyte Esterase Negative (Negative) 11/16/23 19:05 Urine RBC 5-10 /hpf (0-2) H 11/16/23 19:05 Urine WBC 0-4 /hpf (0-5) H 11/16/23 19:05 Ur Squamous Epith Cells 0-4 /hpf (0-5) H 11/16/23 19:05 Amorphous Sediment 1+ /hpf 11/16/23 19:05 Urine Bacteria 2+ /hpf (NONE) H 11/16/23 19:05 Urine Mucus 2+ /hpf 11/16/23 19:05 All radiology interpretation(s) finalized by discharge Discharge Plan Discharge Patient Disposition: Home Clinical Impression: Abdominal pain, Acute prostatitis Condition: Stable Prescriptions: New levofloxacin 500 mg tablet 500 mg PO Q24H 14 Days Qty: 14 0RF ketorolac 10 mg tablet 10 mg PO TID PRN (Reason: pain) Qty: 10 0RF ondansetron 4 mg tablet,disintegrating 4 mg PO Q6H PRN (Reason: nausea and vomiting) Qty: 14 0RF No Action albuterol sulfate [ProAir HFA] 90 mcg/actuation HFA aerosol inhaler 2 puff inhalation QID Qty: 6.7 11RF albuterol sulfate 2.5 mg /3 mL (0.083 %) solution for nebulization 2.5 mg INHALATION Q4H PRN (Reason: shortness of breath or wheezing) 30 Days Qty: 75 11RF revefenacin 175 mcg/3 mL solution for nebulization 175 mcg INHALATION DAILY 90 Days Qty: 90 3RF Rx Instructions: Yazan Tomlinson,DC Perforomist 20 mcg/2 mL solution for nebulization 2 ml inhalation BID Qty: 120 11RF budesonide 0.5 mg/2 mL suspension for nebulization See Rx Instructions .ROUTE .COMPLEX Qty: 60 11RF Dose Instruction: USE 1 VIAL IN NEBULIZER TWICE DAILY - rinse mouth after treatment Rx Instructions: USE 1 VIAL IN NEBULIZER TWICE DAILY - rinse mouth after treatment trazodone 50 mg tablet 50 mg PO BEDTIME Qty: 90 1RF (DME) nebulizer machine See Rx Instructions .Route .MEDSUPPLY Qty: 1 0RF Rx Instructions: 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 See your doctor next week. Coding Level of Care Code ED Staff Sonographer for Belinda Scott
== END 2023-11-16 21:54 | disposition home or self-care (01) ==
PROVIDERS: Family Medicine; Emergency Provider Emergency Medicine; PCP Nurse Practitioner Family
DX: N41.0 Acute prostatitis (principal); R10.30 Lower abdominal pain, unspecified; F17.210 Nicotine dependence, cigarettes, uncomplicated; Z86.73 Personal history of transient ischemic attack (TIA), and cerebral infarction without residual deficits; J44.9 Chronic obstructive pulmonary disease, unspecified
CPT/HCPCS: 36415; 74177; 80053; 81001; 85025; 87086; 94640; 99285; Q9967

== ENCOUNTER → 2023-11-20 11:33 | Outpatient (BNVA) | payer MEDICARE, MEDICAID, SELFPAY | PROVIDERS: PCP Nurse Practitioner Family; Visit Provider Nurse Practitioner Family | DX: R31.9 Hematuria, unspecified (principal); R10.30 Lower abdominal pain, unspecified | CPT/HCPCS: 81000; 84153; 87491; 87591 ==

== ENCOUNTER → 2023-11-25 12:50 | Outpatient (BNVA) | payer MEDICARE, MEDICAID, SELFPAY | PROVIDERS: PCP Nurse Practitioner Family; Visit Provider Internal Medicine Pulmonary Disease | DX: J44.9 Chronic obstructive pulmonary disease, unspecified (principal); G47.34 Idiopathic sleep related nonobstructive alveolar hypoventilation; F17.210 Nicotine dependence, cigarettes, uncomplicated | CPT/HCPCS: 99214 ==

== ENCOUNTER 2024-03-20 08:39 | Outpatient (CLI) | payer MEDICARE, MEDICAID, SELFPAY ==
--- NOTE | 2024-03-20 09:00 | CT_ITS ---
WS: [id number] LDCT LUNG CANCER SCREENING TECHNIQUE: Noncontrast CT of the chest with coronal and sagittal reformatted images. CLINICAL INFORMATION: Cancer Screen COMPARISON: 03/18/2023 DLP: 51.29 mGy.cm DIvol: Mean CTDIvol: 1.00 (mGy) All CT scans at [facility] use at least one of these dose optimization techniques: automat ed exposure control; mA and/or kV adjustment per patient size (includes targeted exams where dose is matched to clinical indication); or iterative reconstruction. FINDINGS: Mild chronic emphysematous changes. Slight fibrosis in the lung apices. Small subpleural no dule in the lingula measuring 4 mm adjacent to the diaphragm. No other suspicious pulmonary parenchym al abnormalities. Normal caliber thoracic aorta. Aortic calcification. No mediastinal or axillary lymphadenopathy. Adre nal glands are normal. Mild fatty atrophy of the pancreas. Hypertrophic changes thoracic spine. CT/CT lung screening [id number] IMPRESSION: LUNG-RADS: 2-Benign Appearance or Behavior FOLLOW UP: 12 Month: Continue annual screening with LDCT
== END 2024-03-20 08:40 | disposition home or self-care (01) ==
LOC: RAD 08:40
PROVIDERS: PCP Nurse Practitioner Family; Visit Provider Internal Medicine Pulmonary Disease
DX: Z12.2 Encounter for screening for malignant neoplasm of respiratory organs (principal); F17.210 Nicotine dependence, cigarettes, uncomplicated; J43.9 Emphysema, unspecified; K86.89 Other specified diseases of pancreas; R91.1 Solitary pulmonary nodule
CPT/HCPCS: 71271

== ENCOUNTER → 2024-05-22 11:35 | Outpatient (BNVA) | payer MEDICARE, MEDICAID, SELFPAY | PROVIDERS: PCP Nurse Practitioner Family; Visit Provider Nurse Practitioner Family | DX: Z13.6 Encounter for screening for cardiovascular disorders (principal); J44.9 Chronic obstructive pulmonary disease, unspecified; U07.1 COVID-19 | CPT/HCPCS: 80053; 80061; 84443; 85025 ==

== ENCOUNTER 2024-08-25 08:46 | Outpatient (CLI) | payer MEDICARE, MEDICAID, SELFPAY ==
--- NOTE | 2024-08-25 08:51 | XR_ITS ---
WS: [id number] Exam: XR hip RT 2-3V wo/w pel* [id number] Date/Time of Exam: 08/25/2024 8:57 AM Reason For Exam: M25.551 - Pain in right hip Exam: XR hip RT 2-3V wo/w pel* [id number] Date/Time of Exam: 08/25/2024 8:57 AM Reason For Exam: M25.551 - Pain in right hip No acute fracture. The joint compartment is relatively well-maintained. Hypertrophic bone formation a long the superior lateral acetabulum. Normal soft tissues. XR/XR hip RT 2-3V wo/w pel* [id number] IMPRESSION: 1. No fracture or other significant finding.
--- NOTE | 2024-08-25 08:51 | XR_ITS ---
WS: [email or web address] Exam: XR lumbar spine 2-3V* [id number] Date/Time of Exam: 08/25/2024 8:57 AM Reason For Exam: M54.50 - Low back pain, unspecified No acute fracture. Disc degeneration at all levels most marked at L4-5 and L5-S1. Prominent posterior osteophyte along the lower endplate of L4 that might cause some spinal canal stenosis. Anterior oste ophytes at all levels. There is straightening. XR/XR lumbar spine 2-3V* [id number] IMPRESSION: 1. Moderately advanced degenerative disc changes as detailed above. No fracture or malalignment. 2. Prominent posterior osteophyte projects from the lower endplate of L4 and mi ght cause some spinal canal stenosis.
== END 2024-08-25 08:47 | disposition home or self-care (01) ==
LOC: RAD 08:48
PROVIDERS: PCP Nurse Practitioner Family; Visit Provider Nurse Practitioner Family
DX: M51.360 Other intervertebral disc degeneration, lumbar region with discogenic back pain only (principal); M25.78 Osteophyte, vertebrae; M25.551 Pain in right hip
CPT/HCPCS: 72100; 73502

== ENCOUNTER 2024-09-01 13:34 | Outpatient (CLI) | payer MEDICARE, MEDICAID, SELFPAY ==
--- NOTE | 2024-09-01 13:36 | MR_ITS ---
WS: [id number] MRI LUMBAR SPINE NONCONTRAST TECHNIQUE: Sagittal T1, T2 and STIR imaging. Axial T1 and T2 imaging. CLINICAL INFORMATION: LOW BACK PAIN COMPARISON: MRI 2016 FINDINGS: Mild lumbar curve. No acute compression. Disc bulging worse at L1-2 with a RIGHT paracentral protrusi on. L1-L2: RIGHT paracentral protrusion is new compared to previous. Moderate central canal stenosis. Imp ingement RIGHT subarticular recess. Mild facet arthropathy. Mild RIGHT foraminal narrowing. L2-L3: Mild disc bulging with a small LEFT subarticular protrusion. Narrowing LEFT subarticular reces s and slight impingement on the exiting LEFT L2 nerve root. This appears new from previous. Mild LEFT foraminal narrowing. RIGHT foramen is patent. L3-L4: Mild disc bulging with slight narrowing of the subarticular recess bilaterally. Mild facet art hropathy. Mild RIGHT foraminal narrowing. Prior hemilaminectomy defects. L4-L5: Disc desiccation with prior hemilaminectomy defects. RIGHT subarticular protrusion appears inv oluted compared to previous. Narrowing of the RIGHT subarticular recess. Mild facet arthropathy. Mild RIGHT foraminal narrowing. L5-S1: Prior laminectomy defects. Central disc bulging with slight contact of the S1 nerve roots bila terally appears unchanged. Mild facet arthropathy. Foramen are patent. Small RIGHT renal cysts. Visualized pelvic bony structures: Normal. Paravertebral soft tissues: Normal. Mild central canal stenosis visualized on curriculum coach imaging in the thoracic spine T10-11. MR/MR lumbar spine wo con* [id number] IMPRESSION: 1. Prominent RIGHT paracentral protrusion L1-2 is new from previous with moder ate central canal stenosis. Impingement traversing RIGHT L2 nerve root in the s ubarticular recess. 2. New small LEFT subarticular and proximal foraminal protrusion L2-3 impinges the proximal exiting LEFT L2 and traversing LEFT L3 nerve roots. Mild central canal stenosis at this level. 3. Slight narrowing of the RIGHT L3-4 subarticular recess with mild RIGHT fora michelle narrowing unchanged. 4. Involuted disc material RIGHT L4-5 subarticular recess with mild residual n arrowing. 5. Laminectomy defects L3-L5. 6. Mild disc bulging L5-S1 slightly impinges the traversing S1 nerve roots ganga aterally unchanged.
== END 2024-09-01 13:35 | disposition home or self-care (01) ==
LOC: RAD 13:35
PROVIDERS: PCP Nurse Practitioner Family; Visit Provider Nurse Practitioner Family
DX: M51.360 Other intervertebral disc degeneration, lumbar region with discogenic back pain only (principal); M99.63 Osseous and subluxation stenosis of intervertebral foramina of lumbar region; M54.16 Radiculopathy, lumbar region; M51.26 Other intervertebral disc displacement, lumbar region; M51.27 Other intervertebral disc displacement, lumbosacral region
CPT/HCPCS: 72148

== ENCOUNTER → 2024-10-20 08:32 | Outpatient (BNVA) | payer MEDICARE, MEDICAID, SELFPAY | PROVIDERS: PCP Nurse Practitioner Family; Visit Provider Orthopaedic Surgery | DX: M54.9 Dorsalgia, unspecified (principal); M48.062 Spinal stenosis, lumbar region with neurogenic claudication | CPT/HCPCS: 36415; 72110; 80053; 81001; 85025; 99204 ==

== ENCOUNTER → 2024-10-23 09:58 | Outpatient (BNVA) | payer MEDICARE, MEDICAID, SELFPAY | PROVIDERS: PCP Nurse Practitioner Family; Visit Provider Family Medicine | DX: Z01.818 Encounter for other preprocedural examination (principal) | CPT/HCPCS: 93005 ==

== ENCOUNTER 2024-11-06 05:28 | Day surgery (SDC) | payer MEDICARE, MEDICAID, SELFPAY ==
--- NOTE | 2024-11-05 | XR_ITS ---
WS: [email or web address] Exam: XR lumbar spine 2-3V* [id number] Date/Time of Exam: 11/05/2024 12:00 AM Reason For Exam: ALOK ROTHMAN Single preoperative AP image of the lumbar spine is submitted. The image was obtained for preop localization purposes.
[2024-11-06] VITALS (17 sets, daily range): BP systolic 103–184; BP diastolic 74–111; PULSE 70–80; RESP 10–20; TEMP 36.4–36.5; O2SAT 94–99; BMI 23.1
[2024-11-06] MEDS: sodium chloride 0.9% 1,000 ML 30 ML IV (06:06)
--- NOTE | 2024-11-06 06:32 | W.PM.OPSUD ---
Surgery/Procedure H&P Update DATE OF PROCEDURE: November 06, 2024 DATE H&P PERFORMED: 10/23/24 H&P UPDATE INFORMATION: I have reviewed H&P completed within last 30 days, I have examined patient prior to procedure and No changes to prior documentation PREOP DIAGNOSIS: Lumbar stenosis with neurogenic claudication PLANNED PROCEDURE: Operation Date: 11/06/24 07:00 Proposed Procedures p Lumbar Decompression(Not Applicable) - Jose Stewart DO
--- NOTE | 2024-11-06 06:49 | ANES.PREANE2 ---
Pre-Anesthetic Assessment Height/Weight: Height 1.63 m Weight 61.235 kg Temp Pulse Resp BP Pulse Ox O2 Del Method 97.5 F L 70 20 H 159/111 96 Room Air 11/06/24 05:54 11/06/24 05:54 11/06/24 05:54 11/06/24 05:54 11/06/24 05:54 11/06/24 05:54 Preop Diagnosis: Lumbar stenosis with neurogenic claudication Operation Date: 11/06/24 07:00 Proposed Procedures p Lumbar Decompression(Not Applicable) - Jose Stewart, DO Familial anesthetic complications: None Was Beta Geo taken within 24 hours: N/A Was Clonidine taken within 24 hours: N/A Last intake: Intake Last Liquid Date 11/05/24 Last Liquid Time 22:00 Last Solid Date 11/05/24 Last Solid Time 22:00 Social Tobacco and No alcohol Exam alert, oriented x 3, clear to auscultation bilaterally and regular rate & rhythm Airway Mallampati: Class I Dentition: full Pulmonary Chronic Obstructive Pulmonary Disease Anesthetic Plan ASA status: 3 Anesthesia: General Risk of > 500 ml blood loss (7ml/kg in children): No Medications/Allergies Home Medications ?Medication ?Instructions ?Recorded ?Confirmed ?Last Taken ?Type nebulizer machine #1 ea 03/29/21 10/20/24 11/05/24 22:00 Rx budesonide 0.5 mg/2 mL suspension See Rx Instructions .Route 08/19/24 11/05/24 11/05/24 22:00 Rx for nebulization .COMPLEX #60 vials formoterol fumarate 20 mcg/2 mL 2 ml inhalation BID #120 mL 08/19/24 11/05/24 11/05/24 22:00 Rx solution for nebulization (Perforomist) revefenacin 175 mcg/3 mL solution 175 mcg (3 mL) inhalation DAILY 90 08/19/24 11/05/24 11/05/24 22:00 Rx for nebulization days #90 mL Allergies Allergy/AdvReac Type Severity Reaction Status Date / Time fentanyl AdvReac ALGY-Rash Verified 11/06/24 05:49 Current Medications Generic Name Dose Route Start Last Admin Trade Name Freq PRN Reason Stop Dose Admin Sodium Chloride 1,000 mls @ 30 mls/hr 11/06/24 05:45 02/21/25 06:06 Sodium Chloride 0.9% IV 11/07/24 05:44 30 mls/hr .Q24H CONCEPCIÓN Administration PFSH Anesthesia Medical History History of CVA (cerebrovascular accident) without residual deficits Anxiety Depression Chronic back pain greater than 3 months duration Smoker COPD (chronic obstructive pulmonary disease) Family History Other Cancer Social History Smoking and tobacco/nicotine status: current every day tobacco/nicotine user cigarettes Packs smoked per day: 0.5 Years cigarettes smoked: 51 [ Other cigarette details: Started at age 15] Second hand smoke exposure: No Alcohol intake: never Substance/Drug Use: unknown Adopted: No Caregiver/support person: No Lives independently: Yes Household members: none Housing: Apartment Marital status: Single Number of children: 4 service: Yes branch: [employer] Current occupational status: disabled Do you think of yourself as: Straight/Heterosexual Current gender identity: Male Data Anesthesia Cardiac Studies: No Data to Display
[2024-11-06] MEDS: ceFAZolin 2,000 mg SDV 2000 MG IVP (06:57)
[2024-11-06] MEDS: lidocaine-epi 1% 20 mL INJ INJECTION (07:39)
[2024-11-06] MEDS: HYDROmorphone 1 mg/mL INJ 1 mL 0.5 MG IVP ×2 (08:21→08:42)
[2024-11-06] MEDS: ondansetron 2 mg/ML SDV 2 mL 4 MG IVP (08:27)
--- NOTE | 2024-11-06 08:30 | PM.OP ---
Operative Report Date of procedure: November 06, 2024 Pre-op diagnosis: Lumbar stenosis with neurogenic claudication Post-op diagnosis: same Post-op findings: L4-5 revision laminectomy and partial facetectomy Surgeon: Jose Stewart DO Estimated blood loss (mL): 5 Procedure: L4-5 revision laminectomy and partial facetectomy Patient is brought to the operative suite. After undergoing anesthesia they are placed in the prone position. All areas of impingement are well padded. Patient is then prepped and draped in the normal sterile fashion. A skin incision is made over the L4-5 level. This is confirmed under c-arm guidance. A series of dilators are passed and the tubular retractor is docked on the L4 lamina. A bovie is used to clear the soft tissue off the lamina and the L 4/5 facet joint. A high speed tito is then used to perform the laminectomy and take down the medial aspect of the L 4/5 facet joint. A kerrison rongeure was then used to take down the remaining lamina and smooth the edge of the laminectomy up to the point where the ligamentum flavum attaches. Attention was then brought to the medial aspect of the facet joint. The remaining medial aspect of the superior and inferior aspect of the facet joint were taken down with the kerrison from the pedicle of L4 to L 5. The facet joint had significant hypertrophy. Attention was then brought to the Ligamentum Flavum. The ligament was taken down from the lamina of L4 to L5 and out medially to the remaining facet joint. The ligament was thick and scarred down. The dura was then exposed. The dura was in good repair. The L5 nerve root was reflected medially with a curette and small pieces of disc material were removed. The L4 nerve was then traced with a curette out the L4/5 foramen and found to be adequately decompressed. The L5 nerve was traced with a curette around the L5 pedicle. The lateral recess was opened with a kerrison helping to further decompress the L5 nerve. Wound is then irrigated copiously with saline and surgiflo is used to stop any bleeding. The tubular retractor is removed and the wound is closed with vicryl and monocryl suture. Glue is then used to protect the wound. A sterile dressing is then placed. Patient was then placed in the supine position and transferred to the PACU in stable condition.
[2024-11-06] MEDS: HYDROcodone-acetaminophen 5-325 mg Tablet 1 TAB PO (09:07)
--- NOTE | 2024-11-06 10:35 | ANE.PACU2 ---
Inpatient post-anesthesia follow up: Airway intact: Yes Vital signs: Temperature 97.5 F Pulse Rate 80 Respiratory Rate 18 Blood Pressure 159/101 Pulse Oximetry 95 Oxygen Delivery Me thod Room Air Oxygen Flow Rate Fraction of Inspir ed Oxygen Hydration adequate: Yes Nausea and vomiting: No Pain level: 1 Mental status: Baseline
== END 2024-11-06 10:38 | disposition home or self-care (01) ==
PROVIDERS: PCP Nurse Practitioner Family; Visit Provider Orthopaedic Surgery
PROC: (CPT 63005; principal; 2024-11-06 07:00)
DX: M48.062 Spinal stenosis, lumbar region with neurogenic claudication (principal); J44.9 Chronic obstructive pulmonary disease, unspecified; F41.9 Anxiety disorder, unspecified; F32.A Depression, unspecified; F17.210 Nicotine dependence, cigarettes, uncomplicated; Z79.899 Other long term (current) drug therapy; Z88.5 Allergy status to narcotic agent; Z86.73 Personal history of transient ischemic attack (TIA), and cerebral infarction without residual deficits
CPT/HCPCS: 63047; 63048; 72100; 76000; J0131; J0690; J1100; J1171; J1200; J2405; J2704; J3490; J7030

== ENCOUNTER 2025-08-27 21:47 | Emergency (ER) | payer MEDICARE, MEDICAID, SELFPAY ==
[2025-08-27] VITALS (7 sets, daily range): BP systolic 127–187; BP diastolic 82–159; PULSE 81–95; RESP 16–28; TEMP 36.6; O2SAT 93–94; BMI 24.0
--- OUTSIDE RECORDS SUMMARY | 2025-08-27 21:52 | XMS_ITS | Encounter Summary ---
Author Organization [facility] Address [address] [place] [address] Care Team Providers Care Religious Education Director Name Role Phone James Castrejon DO Primary Care Provider Encounter Details Date Type Department Care Team (Latest Contact Info) Description 02/21/2008 Outpatient Historical [facility] [address] [place] [address] [facility] [address] [place] [phone] Fredy Seo MD [address] [facility] [address] [place] [phone] Pain in Soft Tissues of Limb; Unspecified Essential Hypertension; Coronary Atherosclerosis of [place] Coronary Artery Social History Tobacco Use Types Packs/Day Years Used Date Smoking Tobacco: Never Assessed Sex and Gender Information Value Date Recorded Sex Assigned at Not on file 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
--- OUTSIDE RECORDS SUMMARY | 2025-08-27 21:52 | XMS_ITS | Encounter Summary ---
Author Organization [facility] Address [address] [place] [address] Care Team Providers Care Tree Scout Name Role Phone James Castrejon DO Primary Care Provider Encounter Details Date Type Department Care Team (Late st Contact Info) Description 06/23/2008 Outpatient Historical [facility] [address] [place] [address] [facility] [address] [place] [phone] Fredy Seo MD [address] [facility] [address] [place] [phone] Social History Tobacco Use Types Packs/Day Years Used Date Smoking Tobacco: Never Assessed Sex and Gender Information Value Date Recorded Sex Assigned at Not on file 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
--- OUTSIDE RECORDS SUMMARY | 2025-08-27 21:52 | XMS_ITS | Encounter Summary ---
Author Organization [facility] Address [address] [place] [address] Care Team Providers Care Dredge Master Name Role Phone James Castrejon DO Primary Care Provider Encounter Details Date Type Department Care Team (Late st Contact Info) Description 03/10/2008 Outpatient Historical [facility] [address] 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
--- OUTSIDE RECORDS SUMMARY | 2025-08-27 21:52 | XMS_ITS | Encounter Summary ---
Author Organization [facility] Address [address] [place] [address] Care Team Providers Care Entry Level Chemist Name Role Phone James Castrejon DO Primary Care Provider Encounter Details Date Type Department Care Team (Latest Contact Info) Description 03/29/2008 Outpatient Historical [facility] [address] [address] [facility] [address] [place] [phone] Fredy Seo MD [address] [facility] [address] [place] [phone] Depressive Disorder, not Elsewhere Classified Social History Tobacco Use Types Packs/Day Years Used Date Smoking Tobacco: Never Assessed Sex and Gender Information Value Date Recorded Sex Assigned at Not on file 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
--- OUTSIDE RECORDS SUMMARY | 2025-08-27 21:52 | XMS_ITS | Encounter Summary ---
Author Organization [facility] Address [address] [place] [address] Care Team Providers Care Director Of Enterprise Applications Name Role Phone James Castrejon DO Primary Care Provider Encounter Details Date Type Department Care Team (Latest Contact Info) Description 05/13/2008 Outpatient Historical [facility] [address] [place] [address] [facility] [address] [place] [phone] Fredy Seo MD [address] 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
--- OUTSIDE RECORDS SUMMARY | 2025-08-27 21:52 | XMS_ITS | Patient Health Record ---
Author Organization [facility] Address [address] [place] [address] Care Team Providers Care Adult Education Professional Name Role Phone Zakia Castellanos Primary Care Provider Allergies Allergen (clinical drug ingredient) Drug/Non Drug Allergy documented on EMR Reaction Allergy Type Onset Date Status fentanyl Fentanyl Unknown Drug Allergy Active Reason For Referral No Information Medications Medication SIG (Take, Route, Frequency, Duration) Notes Start Date End Date Status Cipro 500 MG Tablet 1 tablet Orally ever y 12 hrs; Duration: 7 days 12/31/2019 Active ProAir HFA 108 (90 Base) MCG/ACT Aerosol Solution 1 puff as needed Inhalation every 4 hrs Active Perforomist 20 MCG/2ML Nebulization Solution 2 ml Inhalation Twice a day Active Budesonide 0.5 MG/2ML Suspension 2 ml Inhalation Twice a day Active Social History Tobacco Use: Social History Observation Description Date Details (start date - stop date) Former Smoker NA - NA Social History Drugs/Alcohol: Social Info Question Answer Notes Alcohol Screen (Audit-C) Did you have a drink containing alcohol in the past year? No Points 0 Interpretation Negative Tobacco Use: Social Info Question Answer Notes xTobacco Use/Smoking Are you a former smoker How long has it been since you last smoked? < 1 month Additional Details Category Social Info Options Details Drugs/Alcohol: Do you smoke marijuana? Ad mits hasnt smoked marijuana in over a week due to COPD exacerbation Plan Of Treatment No Information Insurance Providers Payer Name Payer Address Payer Phone Subscriber Number Group Number Insured Name Patient Relationship to Insured Coverage Start Date Coverage End Date [employer] Commercial - Out of Network [address] [place] [phone] [id number] Alfredo Messina Self - patient is the insured Medical (General) History Medical History History ICD Code COPD Surgical History Surgery Date(Month/Year) back surgery eye surgery Hospitalization History Reason Date(Month/Year) COPD exacerbation and flu b 10/2019
--- OUTSIDE RECORDS SUMMARY | 2025-08-27 21:52 | XMS_ITS | Encounter Summary ---
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
--- OUTSIDE RECORDS SUMMARY | 2025-08-27 21:52 | XMS_ITS | Clinical Summary ---
Author Organization [facility] Address [address] [facility] [place] [address] Care Team Providers Care Certified Solid Waste Facility Operator Name Role Phone James Castrejon DO Primary Care Provider Allergies Active Allergy Reactions Criticality Noted Date Comments Lidocaine Hives High 12/26/2012 Medications amitriptyline (ELAVIL) 75 mg Oral tablet Take 75 mg by mouth daily at bedtime. Active aspirin (ECOTRIN EC) 325 mg Oral TbEC Take 325 mg by mouth daily. Active DULoxetine (CYMBALTA) 60 mg Oral CpDR Take 60 mg by mouth daily. Active donepezil (ARICEPT) 5 mg Oral tablet Take 10 mg by mouth daily. Active folic acid (FOLVITE) 1 mg Oral tablet Take 1 mg by mouth daily. Active multivitamin (DAILY-NAVJOT) Oral tablet Take 1 Tab by mouth daily. Active omeprazole (PRILOSEC) 20 mg Oral CpDR Take 20 mg by mouth 2 times daily. Active thiamine (VITAMIN B-1) 100 mg Oral tablet Take 1 Tab by mouth daily. Active albuterol 90 mcg/Actuation Inhalation HFAA inhaler Take 2 Puffs by inhalation every 4 hours as needed. Active HYDROcodone-tonia taminophen (NORCO) 5-325 mg Oral tablet Take 2 Tabs by mouth every 8 hours as needed. Active acetaminophen (TYLENOL) 500 mg Oral tablet Take 1,000 mg by mouth every 6 hours as needed. Active carBAMazepine SR 12 hr (TEGRETOL XR) 200 mg Oral tablet Take 200 mg by mouth 2 times daily. Active Immunizations Immunization Administration Dates Next Due (TDVAX)(7 YRS UP) TETANUS AN D DIPHTHERIA TOXOIDS, ADSORBED (2 LF OF TETANUS TOXOID AND 2 LF OF DIPHTHERIA TOXOID), 0.5ML (PF), IM 02/21/2004 Family History Medical History Relation Name Comments Cancer Father Relation Name Status Comments Father Mother Alive Social History Tobacco Use Types Packs/Day Years Used Date Smoking Tobacco: Every Day Cigarettes 0.5 45 Tobacco Cessation:Ready to Q uit: No Alcohol Use Standard Drinks/Week Comments No 0 (1 standard drink = 0.6 oz pur e alcohol) Sex and Gender Information Value Date Recorded Sex Assigned at Not on file 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 Gender Identity Not on file Sexual Orientation Not on file Occupation Industry Job Start Date Job End Date Not on file Not on file Not on file Not on file Last Filed Vital Signs Vital Sign Reading Time Taken Comments Blood Pressure 120/81 03/10/2013 10:23 AM CDT Pulse 77 03/10/2013 10:23 AM CDT Temperature 35.6 C (96 F) 03/10/2013 9:48 AM CDT Respiratory Rate 16 12/26/2012 9:47 PM CDT Oxygen Saturation 94% 03/10/2013 10:04 AM CDT Inhaled Oxygen Concentration - - Weight 66.2 kg (146 lb) 03/10/2013 9:48 AM CDT Height 162.6 cm (5' 4 ) 03/10/2013 9:48 AM CDT Body Mass Index 25.06 03/10/2013 9:48 AM CDT Plan of Treatment Health Maintenance Due Date Last Done Comments PNEUMOCOCCAL VACCINE 50+ YEARS (1 of 2 - PCV) 10/04/18 75 COLORECTAL SCREENING 2000 Colorectal Cancer Screening 2000 FIT-DNA Q 3 years 2000 FIT/FOBT Q 1 year 2000 Flex Sig/CT Colonography Q 5 years 2000 DTAP/TDAP/TD VACCINES (1 - Tdap) 02/22/2004 02/21/20 04 ZOSTER VACCINE (1 of 2) 2005 INFLUENZA VACCINE (#1) 2025 RSV VACCINE (60+ or ) (1 - 1-dose 75+ series) 2030 Medical Devices Implanted Type Area Underwater Hunter Device Identifier Shelf Expiration Date Model / Serial / Lot Eye Implanted:(Quant ity not on file) Explanted:(Quant ity not on file) Eye Description:Lens in bilat ey e Insurance [place] [place] [address] Care Teams Certified Solid Waste Facility Operator Relationship Specialty Start Date End Date James Castrejon DO PCP - General Family Practice 12/26/12
--- OUTSIDE RECORDS SUMMARY | 2025-08-27 21:52 | XMS_ITS | Encounter Summary ---
Author Organization [facility] Address [address] [place] [address] Care Team Providers Care Outsole Cementer Name Role Phone James Castrejon DO Primary Care Provider Encounter Details Date Type Department Care Team (Late st Contact Info) Description 02/25/2008 Outpatient Historical [facility] [address] 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
--- OUTSIDE RECORDS SUMMARY | 2025-08-27 21:52 | XMS_ITS | Encounter Summary ---
Author Organization [facility] Address [address] [place] [address] Care Team Providers Care Configuration Management Advisor Name Role Phone James Castrejon DO Primary Care Provider Encounter Details Date Type Department Care Team (Latest Contact Info) Description 01/05/2004 Outpatient Historical [facility] [address] 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
--- OUTSIDE RECORDS SUMMARY | 2025-08-27 21:52 | XMS_ITS | Clinical Summary ---
Author Organization [facility] Address [address] [facility] [facility] [address] Bashir: Epic Prelude ADT [place] [address] Care Team Providers Care Crochet Beader Name Role Phone James Castrejon DO Primary Care Provider Allergies Active Allergy Reactions Criticality Noted Date Comments Lidocaine Hives High 12/26/2012 Immunizations Immunization Administration Dates Next Due (TDVAX)(7 YRS UP) TETANUS AN D DIPHTHERIA TOXOIDS, ADSORBED (2 LF OF TETANUS TOXOID AND 2 LF OF DIPHTHERIA TOXOID), 0.5ML (PF), IM 02/21/2004 Family History Medical History Relation Name Comments Cancer Father Relation Name Status Comments Father Mother Alive Social History Tobacco Use Types Packs/Day Years Used Date Smoking Tobacco: Every Day Cigarettes Alcohol Use Standard Drinks/Week Comments No 0 (1 standard drink = 0.6 oz pur e alcohol) Sex and Gender Information Value Date Recorded Sex Assigned at Not on file 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 Gender Identity Not on file Sexual Orientation Not on file Plan of Treatment Health Maintenance Due Date Last Done Comments COLORECTAL SCREENING 2000 Colorectal Cancer Screening 2000 FIT-DNA Q 3 years 2000 FIT/FOBT Q 1 year 2000 Flex Sig/CT Colonography Q 5 years 2000 DTAP/TDAP/TD VACCINES (1 - Tdap) 02/22/2004 02/21/20 04 PNEUMOCOCCAL VACCINE 50+ YEARS (1 of 1 - PCV) 10/04/19 06 ZOSTER VACCINE (1 of 2) 2005 INFLUENZA VACCINE (#1) 2025 RSV VACCINE (60+ or ) (1 - 1-dose 75+ series) 2030 Medical Devices Implanted Type Area Ceo And Founder Device Identifier Shelf Expiration Date Model / Serial / Lot Eye Eye Description:Lens in bilat ey e Care Teams Crochet Beader Relationship Specialty Start Date End Date James Castrejon DO PCP - General Family Practice 12/26/12
--- OUTSIDE RECORDS SUMMARY | 2025-08-27 21:52 | XMS_ITS | Encounter Summary ---
Author Organization [facility] Address [address] [place] [address] Care Team Providers Care Marketing Support Assistant Name Role Phone James Castrejon DO Primary Care Provider Encounter Details Date Type Department Care Team (Late st Contact Info) Description 03/05/2008 Outpatient Historical [facility] [address] [place] [address] Fredy Seo MD [address] [phone] Social History Tobacco Use Types Packs/Day Years Used Date Smoking Tobacco: Never Assessed Sex and Gender Information Value Date Recorded Sex Assigned at Not on file 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 Gender Identity Not on file Sexual Orientation Not on file documented as of this encounter Plan of Treatment Not on file documented as of this encounter Procedures Procedure Name Priority Date/Time Associated Diagnosis Comments NM BONE SCAN WHOLE BODY Routine 03/10/2008 1:03 PM CDT documented in this encounter Results * NM BONE SCAN WHOLE BODY (03/10/2008 1:03 PM CDT) Anatomical Region Laterality Modality Other 03/10/2008 1:03 PM CDT Narrative 03/10/2008 8:57 PM CDT Radionuclide Bone Imaging, Whole Body Examination / SPECT Examination of the lumbar spine: Radiopharmaceutical: Tc-99m HDP ([id number]) Dose: 22 mCi Reason for Consultation: Lumbar spine degenerative disc disease, lumbar pain Whole body imaging was obtained in anterior and posterior projections at approximately two hours following tracer administration. No previous examination is available for comparison. Tomographic imaging was obtained as above extending from T7 through S1 levels. Examination of the spine demonstrates it to be fairly straight with no focal increase observed. Tomographic imaging demonstrates no important focal increased osseous turnover in vertebral bodies or posterior elements. The remainder of the whole-body examination demonstrates no long bone or flat bone abnormalities. There is focally increased tracer in the shoulder girdle involving the acromioclavicular and glenoid regions and at the sternoclavicular joints. There is mild irregularity of tracer in the knees which appears to be in the patella. Soft tissue and renal activity is physiologic. Impression: 1. No evidence of increased osseous remodeling in the lumbar spine that would suggest an osseous etiology for this patient's clinical presentation. 2. No findings suggesting metastatic neoplastic osseous involvement. 3. Findings in the shoulder girdle and knees consistent with arthritic changes. Dictated By: Josh Roberts M.D. Electronically Signed By: Josh Roberts M.D. Date Signed: 03/10/08 Procedure Note Josh Roberts - 04/10/2008 Radionuclide Bone Imaging, Whole Body Examination / SPECT Examination ofthe lumbar spine: Radiopharmaceutical: Tc-99m HDP([id number]) Dose: 22 mCi Reason for Consultation: Lumbar spine degenerative disc disease, lumbarpain Whole body imaging was obtained in anterior and posterior projections atapproximately two hours following tracer administration. No previous examination is available forcomparison. Tomographic imaging was obtained as above extending from T7 through S1 levels. Examination of the spine demonstrates it to be fairly straight with nofocal increase observed. Tomographic imaging demonstrates no important focal increased osseousturnover in vertebral bodies or posterior elements. The remainder of the whole-body examination demonstrates no long bone orflat bone abnormalities. There is focally increased tracer in the shoulder girdle involving theacromioclavicular and glenoid regions and at the sternoclavicular joints. There is mild irregularity of tracerin the knees which appears to be in the patella. Soft tissue and renal activity is physiologic. Impression: 1. No evidence of increased osseous remodeling in the lumbar spine thatwould suggest an osseous etiology for this patient's clinical presentation. 2. No findings suggesting metastatic neoplastic osseous involvement. 3. Findings in the shoulder girdle and knees consistent with arthriticchanges. Dictated By: Josh Roberts M.D. Electronically Signed By: Josh Roberts M.D. Date Signed: 03/10/08 Fredy Seo MD NM ORDERABLES Final Result documented in this encounter Visit Diagnoses Not on filedocumented in this encounter Care Teams Marketing Support Assistant Relationship Specialty Start Date End Date James Castrejon DO PCP - General Family Practice 12/26/12 documented as of this encounter
--- OUTSIDE RECORDS SUMMARY | 2025-08-27 21:52 | XMS_ITS | Encounter Summary ---
Author Organization [facility] Address [address] [place] [address] Care Team Providers Care Reconciliation Manager Name Role Phone James Castrejon DO Primary Care Provider Encounter Details Date Type Department Care Team (Latest Contact Info) Description 01/05/2004 Outpatient Historical [facility] [address] [place] [address] Nitin Epps MD [address] [place] [address] LUMB/LUMBOSAC DISC DEGEN (Primary Dx) Social History Tobacco Use Types Packs/Day Years Used Date Smoking Tobacco: Never Assessed Sex and Gender Information Value Date Recorded Sex Assigned at Not on file 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
--- OUTSIDE RECORDS SUMMARY | 2025-08-27 21:52 | XMS_ITS | Encounter Summary ---
Author Organization [facility] Address [address] [place] [address] Care Team Providers Care Staff Electrical Engineer Name Role Phone James Castrejon DO Primary Care Provider Encounter Details Date Type Department Care Team (Late st Contact Info) Description 04/05/2008 Outpatient Historical [facility] [address] 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
--- NOTE | 2025-08-27 21:57 | ECG_ITS ---
[facility] Date: 2025-08-27 Pat Name: Alfredo Messina Department: Room: Gender: Male Privacy Director: : 1955 Requested By: Thee Borjas Order Number: [id number] Xiao MD: Zenon Villa M.D. Measurements Intervals [place] Rate: 84 P: 67 UT: 207 QRS: 73 QRSD: 89 T: 72 QT: 333 QTc: 396 Interpretive Statements SINUS RHYTHM WITH FIRST DEGREE AV BLOCK Compared to ECG 10/23/2024 09:54:06 NONSPECIFIC T-WAVE ABNORMALITY Electronically Signed On 08-28-2025 19:47:19 STUDIO OPERATIONS ENGINEER IN CHARGE by Zenon Villa M.D. [email or web address]
--- NOTE | 2025-08-27 21:58 | XRR_ITS ---
PROCEDURE INFORMATION: Exam: XR Chest Exam date and time: 08/27/2025 10:04 PM Age: 69 years old Clinical indication: Shortness of breath; Additional info: SOB, ? aspiration TECHNIQUE: Imaging protocol: Radiologic exam of the chest. Views: 1 view. COMPARISON: CT lung screening [id number] 03/20/2024 9:01 AM FINDINGS: Lungs: Unremarkable. No consolidation. Pleural spaces: Unremarkable. No pleural effusion. No pneumothorax. Heart/Mediastinum: Unremarkable. No cardiomegaly. Bones/joints: Unremarkable. XR/XR chest 1V portable [id number] IMPRESSION: No acute findings.
[2025-08-27 22:14] LABS: Hematocrit 46.3 % (37-53); Hemoglobin 15.20 g/dL (11.27-16.99); Mean Corpuscular HGB Conc 32.8 g/dL (30-55); Mean Corpuscular Hemoglobin 29.7 pg (27-33); Mean Corpuscular Volume 90.6 fl (82-101); Nucleated Red Blood Cells % 0 %; Platelet Count 222 10^3/cmm (157-399); Red Blood Count 5.11 10^6/uL (3.85-5.65); White Blood Count 9.04 10^3/uL (3.29-11.43)
[2025-08-27 22:41] LABS: Lactic Sepsis W/Reflex 1.2 mmol/L (0.5-2.2)
[2025-08-27 22:51] LABS: Alanine Aminotransferase 12 U/L (0-41); Albumin Level 4.0 g/dL (3.5-5.2); Alkaline Phosphatase 100 U/L (40-130); Anion Gap 14.0 (5-19); Aspartate Amino Transferase 13 U/L (0-40); Blood Urea Nitrogen 20 mg/dL (8-23); Calcium 8.8 mg/dL (8.5-10.5); Carbon Dioxide 23 mmol/L (22-29); Chloride 107 mmol/L (98-107); Globulin 2.6 g/dL (1.3-4.6); Glucose 109 mg/dL (65-115); NT Pro B Type Natriuretic Pept 102 pg/mL (0-125); Osmolality Calculated 293 mOsm/kg (285-295); Potassium 4.0 mmol/L (3.5-5.1); Sodium 140 mmol/L (136-145); Total Protein 6.6 g/dL (6.6-8.7)
[2025-08-27] MEDS: morphine 4 mg/mL SDV 1 mL IVP (22:59)
[2025-08-27] MEDS: ondansetron 2 mg/ML SDV 2 mL 4 MG IVP (22:59)
--- NOTE | 2025-08-27 23:44 | ED_ITS ---
HPI - SOB/Dyspnea 2 General: Chief Complaint: Airway/Esophagus Foreign Body Stated Complaint: FOOD BOLUS Time Seen by Provider: 08/27/25 21:49 History of Present Illness: HPI Narrative: Patient is a 69-year-old male who presents to the emergency department with a complaint of discomfort in his back/between his shoulder blades after a choking episode. The patient reports he was eating an apple after taking a breathing treatment when he attempted to inhale while swallowing, causing him to choke on a piece of apple. He states that since the incident, he has been experiencing pain or discomfort between his shoulder blades. The patient confirms he is able to swallow his own saliva without problems. He describes the sensation in his back as feeling rough but not bad. The patient reports using a breathing treatment prior to the incident, with a hx of COPD he denies using home oxygen. he is significantly short of breath despite placement of O2 here. Related Data Previous Rx's ?Medication ?Instructions ?Recorded nebulizer machine #1 ea 03/29/21 budesonide 0.5 mg/2 mL suspension See Rx Instructions .Route 08/19/24 for nebulization .COMPLEX #60 vials formoterol fumarate 20 mcg/2 mL 2 ml inhalation BID #1 20 mL 08/19/24 solution for nebulization (Perforomist) revefenacin 175 mcg/3 mL solution 175 mcg (3 mL) inhal ation DAILY 90 08/19/24 for nebulization days #90 mL Allergies Allergy/AdvReac Type Severity Reaction Status Date / Time fentanyl AdvReac ALGY-Rash Verified 11/06/24 05:49 [facility] ED 2 PFS: Medical History (Updated 08/27/25 @ 23:49 by Thee Hamilton DO) History of CVA (cerebrovascular accident) without residual deficits Anxiety Depression Chronic back pain greater than 3 months duration Smoker COPD (chronic obstructive pulmonary disease) Family History Other Cancer Social History Smoking and tobacco/nicotine status: current every day tobacco/nicotine user cigarettes Packs smoked per day: 0.5 Years cigarettes smoked: 51 [ Other cigarette details: Started at age 15] Second hand smoke exposure: No Alcohol intake: never Substance/Drug Use: unknown Adopted: No Caregiver/support person: No Lives independently: Yes Household members: none Housing: Apartment Marital status: Single Number of children: 4 service: Yes branch: [employer] Current occupational status: disabled Do you think of yourself as: Straight/Heterosexual Current gender identity: Male Physical Exam 2 Const: GENERAL APPEARANCE: cooperative, in distress, ill appearing and diaphoretic HENMT: COMMON NORMALS: normocephalic, atraumatic and Normal external nose present HEAD & SCALP: normocephalic and atraumatic FACE & SINUS: normal facial exam and face symmetric NOSE: Normal external nose present Eye: COMMON NORMALS: Equal, round and reactive pupils present and EOMs intact bilaterally PUPIL: Yes Equal, round and reactive pupils present Neck/C-Spine: GENERAL: Yes trachea midline Chest: CHEST: Yes Symmetrical chest wall rise Resp: EFFORT & INSPECTION: Yes tachypneic, Yes labored and No stridor A USCULTATION: rhonchi and wheezes Cardio: COMMON NORMALS: regular rate and regular rhythm RATE: regular rate RHYTHM: regular rhythm GI: COMMON NORMALS: Normal to inspection, nondistended, normoactive bowel sounds present Extremity: COMMON NORMALS: no pedal edema Neuro: [place] COMA SCALE: document [facility]CS findings [place] coma scale eye opening: Spontaneous [place] coma scale verbal response: Orientated [place] coma scale motor response: Obey commands [place] coma scale total score: 15 S ENSORY EXAM: Yes extremities (intact) Psych: COMMON NORMALS: speech normal SPEECH: Yes normal speech Skin: COMMON NORMALS: no rashes or lesions noted GENERAL SKIN EXAM: no rashes or lesions noted Course 2 Vital Signs: Vital signs: Vital Signs Temperature 97.9 F 08/27/25 21:48 Pulse Rate 86 08/27/25 23:04 Respiratory Rate 28 H 08/27/25 22:59 Blood Pressure 166/82 08/27/25 23:04 Pulse Oximetry 93 08/27/25 23:04 Oxygen Delivery Me thod Nasal Cannula 08/27/25 23:04 Oxygen Flow Rate 2 08/27/25 23:04 MDM - SOB/Dyspnea Medical Decision Making Initially the patient was found to be in mild to moderate respiratory distress with respirations of 25-40. He was having pain between his shoulder blades. He was wheezing. He had diminished lung sounds on the right. After breathing treatment here, some morphine for the pain, and oxygen, his respiratory rate has slowed to 25. He is satting 93% on 2 to 3 L. Heart rate is in the 70s to 80s, sinus. Blood pressure down to 137/82. He is no longer diaphoretic. Our detention deputy is only available through telemedicine. I spoke with her about the patient. She agrees that the patient likely aspirated, and may need a bronchoscopy. We do not have that availability here. I spoke with [facility] in [place], regarding potential transfer there. They agree to take in the stepdown unit for continued management of respiratory symptoms, and potential bronchoscopy. CBC is normal. BMP is normal. Chest x-ray remains nonacute so far. BNP is 102. Lactic acid is 1.2. Lab Data 08/27/25 22:06 08/27/25 22:06 Labs/Radiology: Radiology Impressions Chest X-Ray 08/27/25 21:58 IMPRESSION: No acute findings. Laboratory Results WBC 9.04 10^3/uL (3.29-11.43) 08/27/25 22:06 RBC 5.11 10^6/uL (3.85-5.65) 08/27/25 22:06 Hgb 15.20 g/dL (11.27-16.99) 08/27/25 22:06 Hct 46.3 % (37-53) 08/27/25 22:06 MCV 90.6 fl (82-101) 08/27/25 22:06 MCH 29.7 pg (27-33) 08/27/25 22:06 MCHC 32.8 g/dL (30-55) 08/27/25 22:06 RDW 13.1 % (12.1-15.1) 08/27/25 22:06 Plt Count 222 10^3/cmm (157-399) 08/27/25 22:06 MPV 11.1 fL (7.4-10.4) H 08/27/25 22:06 Neut % (Auto) 66.8 % 08/27/25 22:06 Lymph % (Auto) 23.6 % 08/27/25 22:06 [place] % (Auto) 7.0 % 08/27/25 22:06 Eos % (Auto) 2.1 % 08/27/25 22:06 Baso % (Auto) 0.3 % 08/27/25 22:06 Neut # (Auto) 6.04 10^3/uL (1.8-7.7) 08/27/25 22:06 Lymph # (Auto) 2.1 10^3/uL (0.8-4.8) 08/27/25 22:06 [place] # (Auto) 0.6 10^3/uL (0.2-0.9) 08/27/25 22:06 Eos # (Auto) 0.2 10^3/uL (0.0-0.8) 08/27/25 22:06 Baso # (Auto) 0.0 10^3/uL (0.0-0.1) 08/27/25 22:06 Nucleated RBC % (auto) 0 % 08/27/25 22:06 Nucleated RBCs # 0.0 /100WBC 08/27/25 22:06 Sodium 140 mmol/L (136-145) 08/27/25 22:06 Potassium 4.0 mmol/L (3.5-5.1) 08/27/25 22:06 Chloride 107 mmol/L (98-107) 08/27/25 22:06 Carbon Dioxide 23 mmol/L (22-29) 08/27/25 22:06 Anion Gap 14.0 (5-19) 08/27/25 22:06 BUN 20 mg/dL (8-23) 08/27/25 22:06 Creatinine 0.9 mg/dL (0.7-1.2) 08/27/25 22:06 GFR Calculation 83.7 mL/min (90-130) L 08/27/25 22:06 Glucose 109 mg/dL (65-115) 08/27/25 22:06 Calculated Osmolality 293 mOsm/kg (285-295) 08/27/25 22:06 Lactic Acid 1.2 mmol/L (0.5-2.2) 08/27/25 22:06 Calcium 8.8 mg/dL (8.5-10.5) 08/27/25 22:06 Total Bilirubin 0.2 mg/dL (0.15-1.2) 08/27/25 22:06 AST 13 U/L (0-40) 08/27/25 22:06 ALT 12 U/L (0-41) 08/27/25 22:06 Alkaline Phosphatase 100 U/L (40-130) 08/27/25 22:06 NT-Pro-B Natriuret Pep 102 pg/mL (0-125) 08/27/25 22:06 Total Protein 6.6 g/dL (6.6-8.7) 08/27/25 22:06 Albumin 4.0 g/dL (3.5-5.2) 08/27/25 22:06 Globulin 2.6 g/dL (1.3-4.6) 08/27/25 22:06 All radiology interpretation(s) finalized by discharge EKG Data EKG 1: Interpretation: EKG timed 2156 read 2158 reveals sinus rhythm, rate 84. QTc is 374. Normal axis. Other intervals are normal. No ST wave changes. Discharge Plan Discharge Patient Disposition: Xfer Short-Term Hosp Clinical Impression: Aspiration of food into bronchus COPD (chronic obstructive pulmonary disease) Qualifiers: COPD type: unspecified COPD Qualified Code(s): J44.9 - Chronic obstructive pulmonary disease, unspecified Condition: Serious Referrals: Jaylin Benjamin FNP-C [Primary Care Provider, [facility]] Print Language: Czech Coding Level of Care Code ED Scorer Helper for Chg Sonia
[2025-08-28 00:13] VITALS: BP 143/86; PULSE 72; RESP 24; O2SAT 92
[2025-08-28 00:53] VITALS: BP 159/77; PULSE 67; O2SAT 94
[2025-08-28 01:10] VITALS: O2SAT 98
--- NOTE | 2025-08-28 01:10 | PC.NURSE ---
Patient stood up to ambulate to EMS bed for transfer to [facility] and began coughing. Patient coughed up the apple that caused the food bolus. ERP notified immediately. Will watch patient in the meantime and road test in 1 hour. Still tachypneic.
[2025-08-28 01:47] VITALS: BP 156/75; PULSE 70; O2SAT 96
[2025-08-28 02:20] VITALS: BP 163/76; PULSE 65; O2SAT 95
== END 2025-08-28 02:25 | disposition home or self-care (01) ==
PROVIDERS: Emergency Provider Emergency Medicine; PCP Nurse Practitioner Family
DX: T17.520A Food in bronchus causing asphyxiation, initial encounter (principal); J44.9 Chronic obstructive pulmonary disease, unspecified; F17.210 Nicotine dependence, cigarettes, uncomplicated; Z86.73 Personal history of transient ischemic attack (TIA), and cerebral infarction without residual deficits; W44.F3XA Food entering into or through a natural orifice, initial encounter
CPT/HCPCS: 71045; 80053; 83605; 83880; 85025; 93005; 94640; 96374; 96375; 99285; J2270; J2405; J9999